=== PATIENT | female | born 1970 | race Caucasian/White ===

== ENCOUNTER 2016-06-14 17:18 | Emergency (ER) | payer OTHER ==
[~2016-06-14] VITALS: Ht 162.6 cm; Wt 84.0 kg
[2016-06-14 17:18] VITALS: TEMP 37; Ht 162.6 cm; Wt 84.0 kg
[~2016-06-14 17:18] MED LIST: ALBUAER2 INH; IBUP-103 PO; OMEP-105 PO; PRED10TA PO; RIZA1TAB11 PO
[2016-06-14] MEDS ORDERED: CLR10 PO (17:54)
--- NOTE | 2016-06-14 17:56 | DIAGNOSTIC IMAGING REPORT ---
RIGHT KNEE 3 VIEWS CLINICAL HISTORY: right knee injury, twisted Right pain COMPARISON: None. DISCUSSION: The bones and joint spaces appear intact. There is no evidence of fracture, dislocation or bony disease. There is no evidence for soft tissue swelling. IMPRESSION: Negative study. Electronically signed by: Augusto Gonzalez M.D. 06/14/2016 5:55 PM Dictated Date/Time: 06/14/2016 5:54 PM
[2016-06-14] MEDS ORDERED: IBUPROFEN 600 MG TAB ONE (18:02)
[2016-06-14] MEDS ORDERED: IBUPROFEN 200 MG TAB ONE (18:02)
[2016-06-14 18:09] VITALS: BP 153/99; PULSE 80; O2SAT 97
--- NOTE | 2016-06-14 18:16 | EMERGENCY ROOM VISIT NOTE ---
ED Visit Note First contact with patient: 17:24 CHIEF COMPLAINT: knee pain HISTORY OF PRESENT ILLNESS: This 45-year-old female patient presents to the emergency department ambulatory after sustaining an injury to the right knee while at work just prior to arrival. The patient states that she was walking into the restroom and slipped on the wet floor, twisting her right knee. She did not fall. The patient denies any other injuries besides their knee. The patient denies swelling or bruising. There is pain over the lateral aspect of the knee which radiates down the back of the leg. They rate the pain as sharp and 6/10. The patient states they are able to walk on it. No numbness or tingling. No previous injuries to this knee. No ankle, foot or hip pain. REVIEW OF SYSTEMS: A 6 system review of systems was completed with positives and pertinent negatives listed in the HPI. ALLERGIES: No known drug allergies MEDICATIONS: See med list PMH: Migraine headaches SOCIAL HISTORY: The patient lives locally with family. Nonsmoker. PHYSICAL EXAM: Vital Signs: Reviewed Nurse's notes, vital signs stable. GENERAL : This is a 45-year-old female, no acute distress, but appears in pain, well- developed, well-nourished. MENTAL STATUS: Alert, oriented to person place and time, and cooperative. MUSCULOSKELETAL: The right knee is not swollen. There is no ecchymosis. There is no joint effusion present. The patient is tender over the lateral aspect of the knee. The patella does not subluxate. Range of motion is full. Strength of the quads and hamstrings is in 5/5. Myrna's is negative. Boris's and Anterior Drawer tests are negative. There is no laxity with varus and valgus stressing. The foot and toes are warm and well-perfused. Dorsalis pedis pulse 2+. Sensation to pain and light touch is intact. Capillary refill less than 2 seconds. RADIOGRAPHIC FINDINGS: RIGHT KNEE 3 VIEWS CLINICAL HISTORY: right knee injury, twisted Right pain COMPARISON: None. DISCUSSION: The bones and joint spaces appear intact. There is no evidence of fracture, dislocation or bony disease. There is no evidence for soft tissue swelling. IMPRESSION: Negative study. EMERGENCY DEPARTMENT COURSE: I examined the patient. X-rays of the right knee were reviewed by myself and read by radiology and reveal no acute findings. The patient was placed in a knee immobilizer under my direction and the position was satisfactory. She declined crutches. She was given information for orthopedic follow-up. She verbalized understanding of my assessment and treatment plan. The patient was discharged home in good condition. DIAGNOSIS: Right knee injury Problem List Medical Problems: (1) Closed fracture of cervical spine Status: Resolved (2) scoliosis Status: Chronic (3) Whiplash injury to neck Status: Resolved Current/Historical Medications Scheduled Loratadine (Claritin), 10 MG PO DAILY Omeprazole-Sodium Bicarbonate (Zegerid Otc), 1 CAP PO DAILY Scheduled PRN Albuterol (Ventolin), 2 PUFFS INH QID PRN for SOB/Wheezing Ibuprofen Tab (Advil), 800 MG PO Q8 PRN for Pain Rizatriptan Benzoate (Rizatriptan Benzoate), 10 MG PO UD PRN for Migraine Allergies Coded Allergies: No Known Allergies (Verified , 06/14/16) Vital Signs Date Time Temp Pulse Resp B/P Pulse Ox O2 Delivery O2 Flow Rate FiO2 06/14/16 18:09 80 16 153/99 97 Room Air 06/14/16 17:18 37.0 84 20 146/76 96 Room Air Medications Administered Medications (Trade) Dose Ordered Sig/Kathy Route Start Time Stop Time Status Last Admin Dose Admin Ibuprofen (Motrin Tab) 600 mg STK-MED ONCE .ROUTE 06/14/16 18:02 06/14/16 18:04 DC 06/14/16 18:07 600 MG Ibuprofen (Advil Tab) 200 mg STK-MED ONCE .ROUTE 06/14/16 18:02 06/14/16 18:04 DC 06/14/16 18:07 200 MG Departure Information Impression Primary Impression: Sprain of knee Dispostion Home / Self-Care Condition GOOD Referrals Sue Ferguson (PCP) Charlie Jha MD Patient Instructions My [facility] Additional Instructions You have been treated in the Emergency Department for Knee Pain. For pain control, you can use the following [id number] medicines (if >12 yo): - Regular strength (325mg/tab) Tylenol (acetaminophen) 2 tabs every 4-6 hours as needed. Do not exceed 12 tablets in a 24 hour period. Avoid taking more than 4 grams (4000 mg) of Tylenol per day. This includes any other sources of acetaminophen you may take on a regular basis. - Regular strength (200 mg/tab) Advil (ibuprofen) 1-2 tabs every 4-6 hours as needed. Do not exceed a dose of 3200 mg per day. If this is a recent injury (<24 hrs), ice can be applied to the area of pain for the first 3 days to help decrease pain and inflammation. Ice massages can be performed by freezing water in a paper cup, peeling back the cup to expose the ice and then massaging over the affected area. Follow-up with orthopedics next week if persistent pain. Return to the Emergency Department if your current symptoms worsen despite treatment course outlined above. Problem Qualifiers Primary Impression: Sprain of knee Encounter type: initial encounter Involved ligament of knee: unspecified ligament Laterality: right Qualified Codes: S83.91XA - Sprain of unspecified site of right knee, initial encounter
[2017-01-17] MEDS ORDERED: CETI10TA84 PO (13:32)
[2017-01-17] MEDS ORDERED: ALBU18002 INH (13:32)
[2017-01-17] MEDS ORDERED: METH-307 PO (13:32)
[2017-01-17] MEDS ORDERED: ONDA8TAB6 PO (13:32)
== END 2016-06-14 18:25 | disposition home or self-care (01) ==
LOC: C.EDB 17:18 → C.EDD 18:25
DX: S83.91XA Sprain of unspecified site of right knee, initial encounter (principal); W18.40XA Slipping, tripping and stumbling without falling, unspecified, initial encounter; Y99.0 Civilian activity done for income or pay; Z79.899 Other long term (current) drug therapy

== ENCOUNTER → 2016-07-30 | Outpatient (CLI) | payer OTHER ==
[~2016-07-30] MED LIST changes: +ALBU18002 INH; +CETI10TA84 PO; +CLR10 PO; +IBUP1TAB55 PO; +METH-307 PO; +MTR600X PO; +ONDA8TAB6 PO; +OXYC-57 PO; -PRED10TA PO
[2016-07-30 17:33] LABS: BASO % 0.8 %; BASO ABS # 0.05 K/uL (0-0.2); COMPLETE YES; EOS % 4.4 %; HEMATOCRIT 39.4 % (37-47); IG% 0.3 %; LYMPH % 42.6 %; LYMPH ABS # 2.64 K/uL (1.2-3.4); MEAN CELL VOLUME 88.9 fL (80-100); MEAN CORPUSCULAR HEMOGLOBIN 30.2 pg (25-34); MEAN PLATELET VOLUME 8.5 fL (7.4-10.4); MONO % 7.9 %; PLATELET COUNT 392 K/uL (130-400); RED BLOOD COUNT 4.43 M/uL (4.2-5.4)
[2016-07-30 17:40] LABS: URINE APPEARANCE CLEAR (CLEAR); URINE BILIRUBIN NEG (NEG); URINE COLOR YELLOW; URINE EPITHELIAL CELL AUTO >30 /lpf (0-5); URINE NITRITE NEG (NEG); URINE SPECIFIC GRAVITY 1.021 (1.000-1.030); UROBILINOGEN NEG (NEG)
[2016-07-30 17:45] LABS: MANUAL MICROSCOPIC REQUIRED? NO; REVIEW REQ? NO
[2016-07-30 17:53] LABS: ALT/SGPT 30 U/L (12-78); AST/SGOT 13 U/L (15-37); BLOOD UREA NITROGEN 11 mg/dl (7-18); BUN/CREATININE RATIO 13.3 (10-20); CALCIUM 8.8 mg/dl (8.5-10.1); CARBON DIOXIDE 26 mmol/L (21-32); CHLORIDE 108 mmol/L (98-107); CREATININE 0.82 mg/dl (0.60-1.20); GLUCOSE 93 mg/dl (70-99); POTASSIUM 3.9 mmol/L (3.5-5.1); SODIUM 141 mmol/L (136-145)
[2016-07-30 18:04] LABS: ALB/GLOB RATIO 1.1 (0.9-2); ALKALINE PHOSPHATASE 65 U/L (45-117); CHOLESTEROL 163 mg/dl (0-200); CHOLESTEROL/HDL RATIO 3.3; HDL CHOLESTEROL 50 mg/dl; LDL CHOLESTEROL CALCULATED 91 mg/dl; TRIGLYCERIDES 111 mg/dl (0-150); VERY LOW DENSITY LIPOPROT CALC 22 mg/dl
== END | disposition home or self-care (01) ==
LOC: C.LAB 13:31
PROVIDERS: ATTEND Neuromusculoskeletal Medicine & OMM
DX: Z00.00 Encounter for general adult medical examination without abnormal findings (principal); Z87.448 Personal history of other diseases of urinary system

== ENCOUNTER → 2016-08-09 | Outpatient (CLI) | payer OTHER ==
--- NOTE | 2016-08-09 19:33 | DIAGNOSTIC IMAGING REPORT ---
RENAL ULTRASOUND CLINICAL HISTORY: Family history of polycystic kidney disease. COMPARISON STUDY: CT of the abdomen and pelvis July 10, 2015. TECHNIQUE: Sonography of the kidneys and the urinary bladder was performed. FINDINGS: The right kidney measures 11.7 cm in maximal dimension and the left measures 11 cm. There is no hydronephrosis. There are a few suspected right parapelvic cysts. Both ureteral jets were identified. No calculi were identified. IMPRESSION: No renal cortical cysts identified. Electronically signed by: Patrick Jiang M.D. 08/09/2016 7:31 PM Dictated Date/Time: 08/09/2016 7:29 PM
== END | disposition home or self-care (01) ==
LOC: C.ULTR 18:02
PROVIDERS: ATTEND Neuromusculoskeletal Medicine & OMM
DX: R31.29 Other microscopic hematuria (principal); Z82.71 Family history of polycystic kidney

== ENCOUNTER → 2016-12-17 | Outpatient (CLI) | payer OTHER | END | disposition home or self-care (01) | LOC: C.PAPS 10:56 | PROVIDERS: ATTEND Obstetrics & Gynecology | DX: Z12.4 Encounter for screening for malignant neoplasm of cervix (principal); R87.610 Atypical squamous cells of undetermined significance on cytologic smear of cervix (ASC-US); N93.9 Abnormal uterine and vaginal bleeding, unspecified ==

== ENCOUNTER → 2016-12-17 | Outpatient (CLI) | payer OTHER | END | disposition home or self-care (01) | LOC: C.PATHSPEC 10:49 | PROVIDERS: ATTEND Obstetrics & Gynecology | DX: N93.9 Abnormal uterine and vaginal bleeding, unspecified (principal) ==

== ENCOUNTER → 2017-01-02 | Outpatient (CLI) | payer OTHER ==
[2017-01-02 14:38] LABS: HEMATOCRIT 37.7 % (37-47); MEAN CELL VOLUME 89.8 fL (80-100); MEAN CORPUSCULAR HEMOGLOBIN 29.5 pg (25-34); MEAN CORPUSCULAR HGB CONC 32.9 g/dl (32-36); MEAN PLATELET VOLUME 8.1 fL (7.4-10.4); PLATELET COUNT 436 K/uL (130-400); WHITE BLOOD COUNT 7.54 K/uL (4.8-10.8)
== END | disposition home or self-care (01) ==
LOC: C.LAB1850 12:51
PROVIDERS: ATTEND Obstetrics & Gynecology
DX: N93.9 Abnormal uterine and vaginal bleeding, unspecified (principal); N83.202 Unspecified ovarian cyst, left side

== ENCOUNTER → 2017-01-02 | Outpatient (CLI) | payer OTHER | END | disposition home or self-care (01) | LOC: C.PATHSPEC 17:16 | PROVIDERS: ATTEND Obstetrics & Gynecology | DX: N87.1 Moderate cervical dysplasia (principal); R87.810 Cervical high risk human papillomavirus (HPV) DNA test positive ==

== ENCOUNTER 2017-02-04 05:46 | Observation (INO) | payer OTHER ==
--- NOTE | 2017-01-17 13:57 | PAT Medication Instructions ---
Service Date Jan 17, 2017. Current Home Medication List Albuterol Sulfate (Proair Respiclick), 1 PUFF INH Q4 PRN for Shortness of Breath Cetirizine (Zyrtec), 10 MG PO DAILY PRN for ALLERGIC REACTION Ibuprofen Tab (Advil), 800 MG PO Q8 PRN for Pain Loratadine (Claritin), 10 MG PO DAILY PRN for ALLERGIC REACTION Methocarbamol (Robaxin), 750 MG PO Q6 PRN for Muscle Spasms Omeprazole-Sodium Bicarbonate (Zegerid Otc), 1 CAP PO QAM Ondansetron Hcl (Zofran), 8 MG PO Q6 PRN for Nausea Rizatriptan Benzoate (Rizatriptan Benzoate), 10 MG PO UD PRN for Migraine Medication Instructions For Your Scheduled Surgery - Hold the following medications per surgeon's instructions: Ibuprofen Tab (Advil), 800 MG PO Q8 PRN for Pain - Hold the following medications the morning of surgery: Loratadine (Claritin), 10 MG PO DAILY PRN for ALLERGIC REACTION Cetirizine (Zyrtec), 10 MG PO DAILY PRN for ALLERGIC REACTION Methocarbamol (Robaxin), 750 MG PO Q6 PRN for Muscle Spasms - Take the following medications the morning of surgery with a sip of water: Albuterol Sulfate (Proair Respiclick), 1 PUFF INH Q4 PRN for Shortness of Breath (if needed, AND BRING WITH YOU THE MORNING OF THE SURGERY) Omeprazole-Sodium Bicarbonate (Zegerid Otc), 1 CAP PO QAM Ondansetron Hcl (Zofran), 8 MG PO Q6 PRN for Nausea (if needed) Rizatriptan Benzoate (Rizatriptan Benzoate), 10 MG PO UD PRN for Migraine (if needed) - Take the following medications as scheduled the night before surgery: Loratadine (Claritin), 10 MG PO DAILY PRN for ALLERGIC REACTION (if needed) Cetirizine (Zyrtec), 10 MG PO DAILY PRN for ALLERGIC REACTION (if needed) Methocarbamol (Robaxin), 750 MG PO Q6 PRN for Muscle Spasms (if needed) *OTHERWISE NOTHING TO EAT OR DRINK AFTER MIDNIGHT THE NIGHT BEFORE SURGERY* If you have any questions please call us at [phone] or [phone] or [phone]
[2017-01-17 15:08] LABS: BASO % 0.2 %; BASO ABS # 0.02 K/uL (0-0.2); COMPLETE YES; EOS % 3.6 %; HEMATOCRIT 40.5 % (37-47); IG% 0.2 %; LYMPH % 34.5 %; MEAN CELL VOLUME 91.2 fL (80-100); MEAN CORPUSCULAR HEMOGLOBIN 29.3 pg (25-34); MEAN CORPUSCULAR HGB CONC 32.1 g/dl (32-36); MEAN PLATELET VOLUME 8.4 fL (7.4-10.4); MONO % 6.9 %; NEUT % 54.6 %; PLATELET COUNT 360 K/uL (130-400); RED BLOOD COUNT 4.44 M/uL (4.2-5.4); WHITE BLOOD COUNT 8.12 K/uL (4.8-10.8)
[2017-01-17 15:20] LABS: BUN/CREATININE RATIO 15.7 (10-20); CALCIUM 9.3 mg/dl (8.5-10.1); CREATININE 0.8 mg/dl (0.60-1.20)
[~2017-02-04] VITALS: Ht 165.1 cm; Wt 83.2 kg
[2017-02-04] VITALS (8 sets, daily range): BP systolic 115–144; BP diastolic 67–86; PULSE 77–98; TEMP 36.7–37.1; O2SAT 95–98; Ht 165.1 cm; Wt 83.2 kg
[~2017-02-04 05:46] MED LIST changes: -ALBUAER2 INH; -IBUP1TAB55 PO; -MTR600X PO; -OXYC-57 PO
[2017-02-04] MEDS ORDERED: CEFAZOLIN 2000 MG/60 ML D5W IV SCH (06:00)
[2017-02-04] MEDS ORDERED: LACTATED RINGER'S 1000ML 1,000 ML IV SCH ×3 (06:00→10:01)
[2017-02-04] MEDS ORDERED: IBUP1TAB55 PO (06:07)
[2017-02-04] MEDS ORDERED: BUPIVACAINE 0.5 % 5 MG/1 ML MPF 30ML VIAL ONE (06:55)
[2017-02-04] MEDS ORDERED: METHYLENE BLUE 0.5% 10 ML VIAL ONE (06:55)
[2017-02-04] MEDS ORDERED: FENTANYL CITRATE INJ 50 MCG/1 ML 2 ML VIAL ONE (06:57)
[2017-02-04] MEDS ORDERED: MIDAZOLAM HCL 1 MG/ML 2ML VIAL ONE (06:57)
[2017-02-04] MEDS ORDERED: ONDANSETRON INJ 2 MG/ML 2 ML VIAL IV PRN ×2 (07:15→10:15)
[2017-02-04] MEDS ORDERED: EpHEDrine SULFATE INJ 50 MG/ML AMP IV PRN (07:15)
[2017-02-04] MEDS ORDERED: ATROPINE SULFATE 0.1 MG/ML 5ML SYR IV PRN (07:15)
--- NOTE | 2017-02-04 07:16 | History & Physical Bridge Note ---
H&P Re-Evaluation Bridge Note: I have examined the patient, reviewed the History & Physical and in the interval since the performance of the History & Physical I have noted the following changes of clinical significance: No changes noted
[2017-02-04] MEDS ORDERED: ACETAMINOPHEN 1000 MG/100 ML IV IV ONE (07:43)
[2017-02-04] MEDS ORDERED: HYDROmorphone INJ 2 MG/ML SYR/VIAL ONE (07:54)
[2017-02-04] MEDS ORDERED: PROPOFOL IV EMULSION 10 MG/ML 20 ML VIAL IV ONE (08:51)
[2017-02-04] MEDS ORDERED: ROCURONIUM BROMIDE 10 MG/ML 5 ML VIAL IV ONE (08:51)
[2017-02-04] MEDS ORDERED: LIDOCAINE HCL 2% 2 ML VIAL (20MG/ML) ONE (08:51)
[2017-02-04] MEDS ORDERED: ONDANSETRON INJ 2 MG/ML 2 ML VIAL ONE (08:51)
[2017-02-04] MEDS ORDERED: DEXAMETHASONE SOD INJ 4 MG/ML VIAL ONE (08:51)
[2017-02-04] MEDS ORDERED: NEOSTIGMINE METHYLSULFATE 5 MG/5 ML SYR ONE (08:52)
[2017-02-04] MEDS ORDERED: GLYCOPYRROLATE INJ 0.2 MG/ML VIAL ONE (08:52)
--- NOTE | 2017-02-04 10:06 | Medical Student: [facility] ---
Operative Report Operative Date Feb 04, 2017. Pre-Operative Diagnosis Left cyst of the Ovary, Abnormal Uterine Bleeding, Dysmenorrhea Post-Operative Diagnosis Endometriosis, Left cyst of the Ovary, AUB, Dysmenorrhea Procedure(s) Performed Total Laproscopic Hysterectomy and Bilateral Salpingoopherectomy Surgeon Dr. Hull Sharebroker Surgeon(s) Dr. Burton Estimated Blood Loss 50 ml Findings Endometrioma of the right ovary Cyst of the left ovary Endometriosis Fluids (cc crystalloids) 1300 Lactated Ringer's Specimens Normal appearing reproductive age uterus with cervix Right ovary with endometrioma Left ovary with cyst Normal appearing Fallopian Tubes Drains Coffey Catheter Anesthesia General Complication(s) None Disposition Recovery Room / PACU (Discharge today) Description of Procedure Total Laparoscopic Hysterectomy and bilateral salpingo-oophorectomy using DaVinci Robot.
--- NOTE | 2017-02-04 10:07 | Discharge Instructions ---
Discharge Instructions Date of Service Feb 04, 2017. Admission Reason for Admission: Left Ovarian Cyst, Abnormal Uterine Bleeding, Dysp Discharge Discharge Diagnosis / Problem: after surgery Discharge Goals Goal(s): Routine recovery after surgery Activity Recommendations Activity Limitations: as noted below . Instructions / Follow-Up Instructions / Follow-Up POST OPERATIVE: BOWEL FUNCTION/MEDICATIONS: 1. Constipation pain and discomfort are the most common complaints 5-7 days after surgery. Points 2-6 address the things that can help. 2. Chewing gum can help stimulate the gut and help improve digestion and motility. 3. Milk of Magnesia 1-2 times per day until return of bowel function. 4. Colace is a stool softener that helps. Taking this 2-3 times per day until bowel function returns to normal is highly recommended. 5. Dulcolax is a laxative that may be used if several days have passed without a bowel movement. Alternatively Miralax may be used daily instead. 6. Drink plenty of fluids as this will also reduce constipation. 7. Narcotic pain medications will be prescribed by your physician. They are safe to use and we encourage you to use them. If you are not allergic, ibuprofen will also be prescribed. Many patients will be able to transition off of the narcotic medications to ibuprofen by postoperative day 3. ACTIVITY RECOMMENDATIONS: 1. Get plenty of rest and listen to your body. If you are tired, take a nap. 2. You may shower, but do not take a tub bath until you see your doctor at the 2 week post operative visit. 3. Absolutely NO intercourse and nothing in the vagina until you are examined by your doctor at the 8 week visit. At that visit it will be determined when such activities can be resumed. This can range from 6-12 weeks after your surgery depending on healing time. 4. The main physical activity in the first week should be walking. By the second week you can slowly increase activity. There are no limits on walking up and down stairs. 5. Do not lift more than 5-10 lbs for 4 weeks. Remember the "one-handed rule", i.e. if you can lift something with only one hand it's likely okay. 6. Minimize bond runner like vacuuming and exercising for 4 weeks. "Overdoing it" can lead to incisions not healing, pain and vaginal bleeding , so again, listen to your body. 7. Driving can be resumed when you feel able. Do not drive within 24 hours of taking a narcotic medication. EXPECTATIONS: 1. Vaginal spotting, bleeding and discharge are common after surgery. There may even be an odor to the discharge which is often related to sutures used in the vagina. If you experience heavy vaginal bleeding, call the office number day or night [phone]. 2. Bladder discomfort is common after surgery from the catheter. This usually resolves in 1-2 weeks. 3. By the end of the 3rd or 4th week you should be feeling much better. It may take up to 6 weeks for your energy levels to return to normal. 4. Narcotic medications have side effects such as: dizziness, headache, nausea and/or vomiting. If you suspect your pain medication is causing problems, call our office and we may be able to prescribe an alternate medication. 5. The skin incisions are often covered with a liquid bandage. This will gradually peel off over time. CALL THE OFFICE IF YOU HAVE ANY OF THE FOLLOWIN. Temperature of 101 degrees or higher. 2. Severe abdominal or pelvic pain not relieved by pain medication. 3. Persistent nausea or vomiting. 4. Increased pain with urination or difficulty urinating. 5. Bright red bleeding that soaks more than 1 pad per hour. CONTACT PHONE NUMBERS: Main Office: [phone] Surgical Nurse: [phone] extension [phone] FOLLOW-UP: Post-Operative Appointments: * Individual instructions will have been given about the timing of your first examination, but this is usually at the end of the second week home. * You will need to call the office at soon after discharge to make the appointment for your post-op check-up if it has not already been scheduled. * Additional information regarding activity, sexual intercourse and when to return to work will be given at this appointment. WE WISH YOU A SPEEDY RECOVERY! Current Hospital Diet Patient's current hospital diet: Discharge Diet Recommended Diet: Regular Diet Procedures Procedures Performed: Total Laparoscopic Hysterectomy Bilateral Salping-oopherectomy Robot Asisst; Lysis of Adhesions; Cystoscopy Pending Studies Studies pending at discharge: yes List of pending studies: pathology Medical Emergencies . Who to Call and When: Medical Emergencies: If at any time you feel your situation is an emergency, please call 911 immediately. . Non-Emergent Contact Non-Emergency issues call your: Oil Well Logger . . "Provider Documentation" section prepared by Ashley Hull. . VTE Core Measure Inpt VTE Proph given/why not?: SCD's [place] Drug Monitoring Program Search Results: patient reviewed within database, no issues identified
[2017-02-04] MEDS ORDERED: MTR600X PO (10:09)
[2017-02-04] MEDS ORDERED: OXYC-57 PO (10:09)
--- NOTE | 2017-02-04 10:13 | [facility] Post Operative Brief Note ---
Immediate Operative Summary Operative Date Feb 04, 2017. Pre-Operative Diagnosis Dysmenorrhea, Abnormal Bleeding; Cyst of Left Ovary, severe dysplasia Post-Operative Diagnosis Same as preop, endometriosis Procedure(s) Performed Total Laparoscopic Hysterectomy Bilateral Salping-oopherectomy Robot Asisst; Lysis of Adhesions; Cystoscopy Surgeon Dr. Hull Game Designer/Creative Director Surgeon(s) RN Estimated Blood Loss 50 ml Findings uterus mobile but left and right ovary with cystic masses, stuck in cul de sac, evidence of endometrioma on right. debris in cul de sac, liver edge not seen, obscured by fat. cystoscopy findings with normal bladder filling, no sutures seen, nl ureteral jets. Fluids (cc crystalloids) 1300 Specimens A. Cervix, Uterus, Bilateral Fallopian Tubes, Left Ovary. Right ovary Drains nolasco Anesthesia general Complication(s) None Disposition Recovery Room / PACU
[2017-02-04] MEDS ORDERED: ACETAMINOPHEN 325 MG TAB PO PRN (10:15)
[2017-02-04] MEDS ORDERED: SIMETHICONE 80 MG CHEW PO PRN (10:15)
[2017-02-04] MEDS ORDERED: KETOROLAC TROMETHAMINE 30 MG/ML VIAL IV. PRN (10:15)
[2017-02-04] MEDS ORDERED: IBUPROFEN 600 MG TAB PO PRN (10:15)
[2017-02-04] MEDS ORDERED: OXYCODONE/ACETAMINOPHEN 5-325 TAB PO PRN (10:15)
[2017-02-04] MEDS: FENTANYL CITRATE INJ 50 MCG/1 ML 2 ML VIAL IV PRN ×2 (10:22→10:28)
--- NOTE | 2017-02-04 10:35 | Anesthesiology Progress Note ---
Anesthesia Post Op Note Date & Time Feb 04, 2017 at 10:35 Vital Signs Pain Intensity: 2 Vital Signs Past 12 Hours Date Time Temp Pulse Resp B/P (MAP) Pulse Ox O2 Delivery O2 Flow Rate FiO2 02/04/17 10:25 70 16 132/67 98 Nasal Cannula 2 02/04/17 10:15 79 16 145/65 100 Oxymask 10 02/04/17 10:05 79 16 147/71 100 Oxymask 10 02/04/17 09:56 37.4 101 16 154/83 98 Oxymask 10 02/04/17 06:00 36.8 83 18 141/86 (104) 98 Room Air Notes Mental Status: alert / awake / arousable, participated in evaluation Pt Amnestic to Procedure: Yes Nausea / Vomiting: adequately controlled Pain: adequately controlled Airway Patency, RR, SpO2: stable & adequate BP & HR: stable & adequate Hydration State: stable & adequate Anesthetic Complications: no major complications apparent
--- NOTE | 2017-02-04 11:12 | [facility] Operative Report ---
Operative Report Operative Date Feb 04, 2017. Pre-Operative Diagnosis Dysmenorrhea, Abnormal Uterine Bleeding; dyspareunia, pelvic pain, Cyst of Left Ovary, severe dysplasia Post-Operative Diagnosis Same as preop, endometriosis Procedure(s) Performed Total Laparoscopic Hysterectomy Bilateral Salping-oopherectomy Robot Asisst; Lysis of Adhesions; Cystoscopy Surgeon Dr. Hull Hydraulic Engineer Surgeon(s) RN Estimated Blood Loss 50 ml Findings Uterus normal in size and mobile in the pelvis. Liver edge and secured by fatty bowel. Bilateral ovaries stuck within the cul-de-sac. Left ovary with mass approximately 2-3 cm protruding from its posterior pole. Right ovary with evidence of endometrioma with spill of chocolate cyst fluid. Filmy adhesions of bilateral ovaries to the cul-de-sac and to each other. Significant debris and remnants of adhesed endometrioma in the cul-de-sac. Cystoscopy findings with normal bladder filling and normal ureteral jets. Fluids 1300 Specimens A. Cervix, Uterus, Bilateral Fallopian Tubes, Left Ovary. Right ovary Drains nolasco Anesthesia general Complication(s) None Disposition Recovery Room / PACU Description of Procedure Patient taken to the operating room and identified. After adequate general anesthesia was obtained as well as the dorso lithotomy position and prepped and draped in the usual sterile fashion. Attention was turned to the patient's vagina where a Nolasco catheter was placed under sterile conditions. A weighted speculum and anterior retractor used to visualize the cervix which was grasped on its anterior lip with an Allis clamp. A single interrupted suture of 0 Vicryl space at the 3 o'clock position. The cervix is sequentially dilated using Hegar dilators to 23. The uterus sounded to 9 cm. The PartyLine care uterine manipulator was gently placed in the cervical os into the uterine cavity and the balloon was inflated. Suture material was tied down to the cup. The stabilizing cup was placed and the vaginal instruments were all removed. Attention was then turned to the patient's abdomen where a supraumbilical skin incision was made with the scalpel. The Veress needle was placed intraperitoneally with an opening pressure of 4-6 mmHg. A CO2 pneumoperitoneum was created. The 12 mm trocar was placed under direct visualization using the optical trocar. The patient was placed in steep Trendelenburg. Two da Wilson trocar sites were created left and right of the midline by first making skin incisions and then placing under direct visualization da Wilson trocars. Using a blunt probe the pelvis was inspected with the findings as noted above. In anticipation of needing to take Further Adhesions, a Third Instrument Trocar Was Then Placed under Direct Visualization. In Addition, a Patient Assist Port Was Placed in the Left Upper Quadrant. The camera was then removed and the da Wilson robot was brought to the patient's bedside. The appropriate instrument arms were connected to the appropriate trocars. The camera was brought into the field. Through instrument instrument arm #3 a prograsp was placed. Through Instrument arm #2 the fenestrated bipolar was placed. Through instrument arm #1 monopolar joel was placed. These were all placed under direct visualization. The surgeon then went to the console. The uterus was manipulated to elevate it anteriorly. Adhesions were taken down both bluntly and sharply using the monopolar joel. Given the patient's complaints the decision was made to proceed with bilateral salpingo-oophorectomy. The left infundibulopelvic ligament was identified. Ureter was suspected to be coursing well below the planned operative site. The infundibulopelvic ligament was cauterized and then transected. The round ligament and broad ligament attachments were further cauterized and transected. The anterior posterior leaves of the broad ligament on the left side were opened up into. The bladder flap was begun from the left to meet across the midline towards the right. The bladder was pushed well away from the planned operative sites. The uterine artery pedicle was coagulated on this side. Attention was then turned to the right infundibulopelvic ligament which was identified. The ureter was suspected to be coursing well below the planned operative site. The ligament was then coagulated and transected in similar fashion as were the broad ligament and round ligament attachments. The anterior and posterior leaves of the broad ligament were opened up into on the right side. The bladder flap was begun from the right and then across the midline towards the left. The bladder was pushed well away from the planned operative site. The uterine artery pedicle was skeletonized. It was coagulated and then transected. The cardinal ligament attachments were further coagulated and transected. Attention was then returned to the left uterine artery pedicle which was further skeletonized coagulated and transected. The cardinal ligament attachments were also coagulated and transected. This completely mobilized the planned colpotomy site. The colpotomy was begun and with the cervix was carved away from the upper vagina circumferentially. The specimen was brought out vaginally. IV methylene blue was administered. Using 2-0 V LOC 90 suture, the vaginal cuff was closed in the usual fashion after #1 instrument arm was replaced with a large needle transportation driver. The suture was then cut and the needle was removed from the abdomen. The pelvis was irrigated and the suture line was hemostatic. The CO2 pneumoperitoneum was let down and the suture line remained hemostatic. At this point the camera was removed. CO2 pneumoperitoneum was let down. The speeder machine operator then went to perform the cystoscopy. The findings were as noted as above. A new Nolasco catheter was placed. Attention was then turned to the patient's abdomen where the instrument arms removed from the appropriate trocars and the robot was undocked and moved away from the patient's bedside. The CO2 gas had been let out of the patient's abdomen and the trocars removed. The larger trocar site had the fascia reapproximated with a single stitch of 0 Vicryl. All trocar sites were then closed in a particular fashion using 4-0 Vicryl. The incisions were injected with Marcaine. They were then dressed with Dermabond. The patient was returned to the supine position, awoken from anesthesia and transferred recovery room in stable condition. All sponge lap and needle counts were correct 2 I attest to the content of the Intraoperative Record and any orders documented therein. Any exceptions are noted below.
[2017-02-04] MEDS ORDERED: IV FLUIDS COMPLETED PRN (12:15)
[2017-02-04] MEDS: OXYCODONE/ACETAMINOPHEN 5-325 TAB PO PRN ×2 (14:37→18:13)
== END 2017-02-04 18:25 | disposition home or self-care (01) ==
LOC: C.ACU 05:46 → C.MS4N 10:04 → ENRESERV 10:52
PROVIDERS: ADMIT Obstetrics & Gynecology; ATTEND Obstetrics & Gynecology
DX: D06.9 Carcinoma in situ of cervix, unspecified (principal); D25.9 Leiomyoma of uterus, unspecified; N94.6 Dysmenorrhea, unspecified; N83.202 Unspecified ovarian cyst, left side; E66.9 Obesity, unspecified; J45.909 Unspecified asthma, uncomplicated; N94.10 Unspecified dyspareunia; Z90.49 Acquired absence of other specified parts of digestive tract; Z82.49 Family history of ischemic heart disease and other diseases of the circulatory system; Z83.3 Family history of diabetes mellitus
CPT/HCPCS: 58571; S2900

== ENCOUNTER 2017-05-25 16:54 | Emergency (ER) | payer OTHER ==
[~2017-05-25] VITALS: Ht 162.6 cm; Wt 85.8 kg
[~2017-05-25 16:54] MED LIST changes: +IBUP1TAB55 PO; +MTR600X PO; +OXYC-57 PO
[2017-05-25 16:57] VITALS: TEMP 36.7; Ht 162.6 cm; Wt 85.8 kg
[2017-05-25] MEDS ORDERED: CYCLOBENZAPRINE HCL 10 MG TAB PO STA (17:13)
[2017-05-25] MEDS ORDERED: OXYCODONE/ACETAMINOPHEN 5-325 TAB PO STA (17:13)
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
--- NOTE | 2017-05-25 18:29 | EMERGENCY ROOM VISIT NOTE ---
ED Visit Note First contact with patient: 17:02 The patient was seen and examined with Lucina Aquino PA-C. I agree with the history, physical and findings. Please see the note for disposition and details. Patient has tenderness in the left trapezius area. She is neurovascularly intact in the left upper extremity. CT imaging ordered. Cardiopulmonary examination unremarkable.
--- NOTE | 2017-05-25 18:42 | DIAGNOSTIC IMAGING REPORT ---
CERVICAL SPINE CT CT DOSE: 240.48 mGy.cm HISTORY: L sided neck pain down arm work related injury TECHNIQUE: Multiaxial CT images of the cervical spine were performed and reformatted in the sagittal and coronal plane without the use of contrast. A dose lowering technique was utilized adhering to the principles of ALARA. COMPARISON: Cervical spine CT 01/21/2013. FINDINGS: No fractures. No subluxation. Prevertebral soft tissues and the C1-C2 interval are intact. No pneumothorax. Small broad-based posterior disc osteophyte complex at C4-C5. No significant central canal narrowing by CT technique. There straining of the cervical spine, unchanged. The visualized brain parenchyma is unremarkable. Mild dextroscoliosis which may be positional. Moderate osteoarthritis within the left C2-C3 facet. IMPRESSION: No fractures within the cervical spine. Electronically signed by: Javad Addison M.D. 05/25/2017 6:41 PM Dictated Date/Time: 05/25/2017 6:37 PM
[2017-05-25] MEDS ORDERED: B-COTAB18 PO (18:44)
[2017-05-25] MEDS ORDERED: BLAC1TAB PO (18:44)
[2017-05-25] MEDS ORDERED: DEXAMETHASONE SOD INJ 4 MG/ML VIAL PO STA (18:47)
--- NOTE | 2017-05-25 19:11 | DIAGNOSTIC IMAGING REPORT ---
L RIBS UNILATERAL WITH PA CHEST CLINICAL HISTORY: L lateral mid rib pain COMPARISON STUDY: Chest CT 01/21/2013. FINDINGS: The heart is mildly enlarged. The lungs are clear. No pleural effusions. No pneumothorax. No rib fractures. IMPRESSION: No rib fractures. No pneumothorax. Electronically signed by: Javad Addison M.D. 05/25/2017 7:10 PM Dictated Date/Time: 05/25/2017 7:07 PM
[2017-05-25] MEDS ORDERED: PRED50TA PO (19:44)
[2017-05-25] MEDS ORDERED: CYCL10TA6 PO (19:44)
[2017-05-25 20:38] VITALS: BP 147/85; PULSE 70; O2SAT 96
== END 2017-05-25 20:41 | disposition home or self-care (01) ==
LOC: C.EDB 16:56
DX: M54.2 Cervicalgia (principal); R07.81 Pleurodynia; Y99.0 Civilian activity done for income or pay; W50.1XXA Accidental kick by another person, initial encounter; Y93.89 Activity, other specified; Y92.89 Other specified places as the place of occurrence of the external cause; M41.9 Scoliosis, unspecified; Z87.81 Personal history of (healed) traumatic fracture; Z80.9 Family history of malignant neoplasm, unspecified; Z83.3 Family history of diabetes mellitus; Z83.79 Family history of other diseases of the digestive system; Z82.49 Family history of ischemic heart disease and other diseases of the circulatory system; Z84.1 Family history of disorders of kidney and ureter; Z82.0 Family history of epilepsy and other diseases of the nervous system

== ENCOUNTER 2017-09-17 22:17 | Emergency (ER) | payer OTHER ==
[~2017-09-17] VITALS: Ht 165.1 cm; Wt 89.0 kg
[~2017-09-17 22:17] MED LIST changes: +B-COTAB18 PO; +BLAC1TAB PO; -MTR600X PO; -OMEP-105 PO; +OMEP-107 PO; +ONDA-170 PO; -ONDA8TAB6 PO
[2017-09-17 22:18] VITALS: Ht 165.1 cm; Wt 89.0 kg
[2017-09-17] MEDS ORDERED: ERYTHROMYCIN OP OINT 5 MG/GM 3.5 GM TUBE OP ONE (22:30)
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
[2017-09-17 22:45] VITALS: BP 136/76; PULSE 89; TEMP 36.8; O2SAT 98
== END 2017-09-17 22:47 | disposition home or self-care (01) ==
LOC: C.EDB 22:18
DX: H00.011 Hordeolum externum right upper eyelid (principal); Z79.899 Other long term (current) drug therapy; Z80.9 Family history of malignant neoplasm, unspecified; Z83.3 Family history of diabetes mellitus; Z83.79 Family history of other diseases of the digestive system; Z84.1 Family history of disorders of kidney and ureter; Z82.49 Family history of ischemic heart disease and other diseases of the circulatory system; Z82.0 Family history of epilepsy and other diseases of the nervous system

== ENCOUNTER 2018-10-02 15:29 | Inpatient (IN) ==
[2018-10-02] MEDS ORDERED: ONDANSETRON HCL 8 MG/54 ML BAG IV STA (15:44)
[2018-10-02] MEDS ORDERED: SODIUM CHLORIDE 0.9% 1000ML 1,000 ML IV SCH ×2 (15:45)
--- NOTE | 2018-10-02 16:35 | XRay Report ---
XR chest 1V portable CLINICAL HISTORY: 47 years-old Female presenting with weakness. TECHNIQUE: Portable upright AP view of the chest was obtained. COMPARISON: 09/28/2018. FINDINGS: Tunneled right subclavian or internal jugular catheter terminates in the mid SVC. Cardiac silhouette top normal in size. No focal opacity. No large effusion or pneumothorax. Osseous structures normal. C holecystectomy clips noted. IMPRESSION: 1. Borderline cardiomegaly. Otherwise no acute cardiopulmonary disease. Electronically signed by: Kevin Pope M.D. 10/02/2018 4:33 PM
[2018-10-02 16:41] LABS: Alanine Aminotransferase 129 U/L (12-78); Aspartate Aminotransferase 72 U/L (15-37); BUN Creatinine Ratio 13.3 (10-20); Blood Urea Nitrogen 18 mg/dl (7-18); Calcium 9.4 mg/dl (8.5-10.1); Carbon Dioxide 24 mmol/L (21-32); Chloride 103 mmol/L (98-107); Creatinine Clr Calc Pharmacy 50.8 ml/min; Est GFR (Non-African American) 47.5; Glucose 108 mg/dl (70-99); Magnesium 1.5 mg/dl (1.8-2.4); Potassium 3.1 mmol/L (3.5-5.1); Sodium 137 mmol/L (136-145)
[2018-10-02 16:52] LABS: Albumin Globulin Ratio 1.4 (0.9-2); Alkaline Phosphatase 106 U/L (45-117); Bilirubin,Total 1.2 mg/dl (0.2-1); Globulin 2.9 gm/dl (2.5-4.0); Total Protein 6.9 gm/dl (6.4-8.2); Troponin I < 0.015 ng/ml (0-0.045)
[2018-10-02] MEDS ORDERED: OPTIRAY 320 125ml IV PRN (16:59)
[2018-10-02] MEDS ORDERED: POTASSIUM CHLORIDE / WTR 10 MEQ/100 ML PLCT IV ONE (17:00)
[2018-10-02] MEDS ORDERED: MAGNESIUM SULFATE / D5W 1 GM/100 ML BAG IV ONE (17:00)
--- NOTE | 2018-10-02 17:13 | CT Scan Report ---
CT ANGIOGRAM OF THE CHEST CLINICAL HISTORY: Dyspnea. COMPARISON STUDY: Chest x-ray dated 10/02/2018. Chest CT dated 01/21/2013. TECHNIQUE: Following the IV administration of 114 cc of Optiray 320, CT angiogram of the chest was pe rformed from the upper abdomen to the thoracic inlet utilizing the pulmonary embolus protocol. Images are reviewed in the axial, sagittal, and coronal planes. 3-D MIPS images are created and assessed. I V contrast was administered without complication. A dose lowering technique was utilized adhering to the principles of ALARA. CT DOSE: 230.61 mGy.cm FINDINGS: Thyroid: Imaged portions of the thyroid gland are normal in size and attenuation. Thoracic aorta: The thoracic aorta is normal in caliber and demonstrates standard 3-vessel arch anato my. No dissection is seen. Pulmonary vasculature: The pulmonary trunk is normal in caliber. There are no filling defects identif ied in main, lobar, or segmental pulmonary branches to suggest pulmonary embolus. Heart: A right subclavian central venous infusion port is in place. The heart is top normal in size a nd without pericardial effusion. Lungs and pleural spaces: Evaluation of the lung parenchyma is modestly degraded by motion artifact. No airspace consolidation or pleural effusion is identified. The trachea and central airways are hannah r. Mild diffuse peribronchial thickening is noted. Mediastinum: There is no mediastinal lymphadenopathy. Anali: Clear. Axillae: There is no axillary lymphadenopathy. Upper abdomen: Small hepatic cyst 7 present dating back to 2012 and measure up to 12 mm. Partially vi sualized upper abdominal viscera is otherwise within normal limits. Skeletal structures: No lytic or blastic bony lesions are seen. IMPRESSION: 1. There is no evidence of pulmonary embolus in the main, lobar, or segmental pulmonary arteries. 2. There is no airspace consolidation or pleural effusion. 3. Mild diffuse peribronchial thickening is noted. Correlate clinically for evidence of reactive airw ay disease. Electronically signed by: Kj Gaming M.D. 10/02/2018 5:12 PM
[2018-10-02 17:17] LABS: Basophils # (auto) 0.01 K/uL (0-0.2); Basophils % (auto) 0.3 %; Eosinophils # (auto) 0.01 K/uL (0-0.5); Eosinophils % (auto) 0.3 %; Lymphocytes # (auto) 1.95 K/uL (1.2-3.4); Lymphocytes % (auto) 54.2 %; Monocytes # (auto) 0.96 K/uL (0.11-0.59); Monocytes % (auto) 26.7 %; Neutrophils % (auto) 18.5 %; Toxic Granulation 1+
[2018-10-02 17:20] LABS: Neutrophils # (auto) 0.67 K/uL (1.4-6.5)
[2018-10-02 17:21] LABS: Hematocrit (blood only) 26.9 % (37-47); Hemoglobin 9.5 g/dL (12.0-16.0); Mean Corpuscular Volume 87.6 fL (80-100); Red Blood Count 3.07 M/uL (4.2-5.4)
[2018-10-02 17:22] LABS: Mean Corpuscular Hgb Conc 35.3 g/dL (32-36); Mean Platelet Volume 9.2 fL (7.4-10.4); Platelet Count 122 K/uL (130-400); RDW Coefficient of Variation 17.9 % (11.5-14.5); RDW Standard Deviation 56.8 fL (36.4-46.3)
[2018-10-02 17:39] LABS: Lyme Ab IgG w/WB Rflx Negative (Negative); Lyme Ab IgM w/WB Rflx Negative (Negative)
[2018-10-02 18:25] LABS: Appearance Urine Clear (Clear); Bacteria Urine Automated Negative (Negative); Bilirubin Urine Negative (Negative); Blood Urine 1+ (Negative); Color Urine Yellow; Epithelial Cell Urine Auto >30 /lpf (0-5); Glucose Urine UA Negative (Negative); Ketones Urine Trace (Negative); Leukocyte Esterase Urine Negative (Negative); Nitrite Urine Negative (Negative); RBC Urine Automated 0-4 /hpf (0-4); Specific Gravity Urine 1.044 (1.000-1.030); Urobilinogen Urine Negative (Negative)
[2018-10-02 18:34] LABS: Protein Urine Trace (Negative)
[2018-10-02] MEDS ORDERED: DOXYCYCLINE HYCLATE 100 MG in DEXTROSE 5% 100 ML IV STA (18:40)
[2018-10-02 18:52] LABS: Renal Epithelial Cells Urine 0-5 /lpf (0-5)
--- NOTE | 2018-10-02 19:05 | History & Physical Report ---
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 We will employ pankaj tropenic precautions and follow with therapy for the anaplasmosis. one additional dose of neupogen was administered (6) Anemia: Patient's anemia is likely multifactorial including chemotherapy-induced anemia and anemia of chronic disease (7) LFTs abnormal: Abnormal LFTs are suspected to be from her anaplasmosis History of Present Illness Primary Care Provider: Be Segura DO Patient presents emergency department approximately 1 day after chemotherapy. She was in the ER proxy 4 days ago with dizziness and at that time they thought she was dehydrated from a chemotherapy-induced diarrhea. She was rehydrated and her lecture lites were repleted she was released to home. She presents with similar symptoms of dizziness some mild headache dyspnea on exertion and ringing in her ears. Patient been having nausea at home using Zofran and Compazine and also Ativan for nausea has been in touch with her physician at [place] Dr. santoyo oncologist caring for her. She has no local oncologist in [facility]. Emergency department she is found to be neutropenic although her white blood cell count is at 3.6 her total neutrophil count is at 670. Laboratory called and [facility] anaplasmosis inclusion in her peripheral smear. She is hyponatremic hypokalemic she is abnormal LFTs and a significantly abnormal EKG although negative troponin. This patient also feels her diarrhea is usual for her. She did receive 5 days of Neupogen post post post chemotherapy. She is no known coronary disease and did have an echocardiogram prior to treatment of her chemotherapy. Her is also reminded that she does have occasional chest pain but none currently Allergies Allergy/AdvReac Type Severity Reaction Status Date / Time fentanyl AdvReac Mild Itchiness-n Verified 10/02/18 16:44 ose hydromorphone AdvReac Mild Itchiness-n Verified 10/02/18 16:44 ose SCENTED SOAPS AND LAUNDRY Allergy Intermediate rash and Uncoded 10/02/18 16:44 PRODUCTS itching SEASONAL Allergy Intermediate sneezing, Uncoded 10/02/18 16:44 watery eyes, itching Home Medications Home Medications Medication Instructions Recorded Confirmed Type albuterol sulfate [ProAir HFA] 1 puff INHALATION Q4H PRN 05/25/18 10/02/18 History ibuprofen 800 mg PO Q8H PRN 05/25/18 10/02/18 History ibuprofen-diphenhydramine cit 2 cap PO HS PRN 05/25/18 10/02/18 History [Ibuprofen PM] loratadine [Claritin] 10 mg PO DAILY 05/25/18 10/02/18 History methocarbamol [Robaxin-750] 750 mg PO Q6H PRN 05/25/18 10/02/18 History ondansetron HCl [Zofran] 8 mg PO TID PRN 05/25/18 10/02/18 History rizatriptan 10 mg PO DIRECTED PRN 05/25/18 10/02/18 History ciprofloxacin HCl 500 mg PO Q12H PRN 09/28/18 10/02/18 History diphenoxylate-atropine 1 tab PO TID PRN 09/28/18 10/02/18 History filgrastim-sndz [Zarxio] 480 mcg SUBCUT DIRECTED 09/28/18 10/02/18 History lansoprazole 30 mg PO DAILY 09/28/18 10/02/18 History lorazepam 1 mg PO TID PRN 09/28/18 10/02/18 History prochlorperazine maleate 5 mg PO QID PRN 09/28/18 10/02/18 History [Compazine] dexamethasone See Rx Instructions .ROUTE .COMPLEX 10/02/18 10/02/18 History lidocaine HCl [Lidocaine Viscous] 1 applic TOPICAL DIRECTED PRN 10/02/18 10/02/18 History pyridoxine (vitamin B6) [Vitamin 100 mg PO DAILY 10/02/18 10/02/18 History B-6] ranitidine HCl 150 mg PO DAILY 10/02/18 10/02/18 History Past Med/Surg History Medical History Asthma Closed fracture of cervical spine (Resolved 01/21/13) Endometriosis Ovarian cystic mass Severe dysplasia of cervix Whiplash injury to neck (Resolved 01/21/13) Breast cancer (Acute) Social History Preferred Language: [place] marital status: current occupational status: employed current occupation: employed at [employer] Feels Safe at Home: Yes Smoking Status: Never smoker Review of Systems Review of Systems: ROS: Patient is weak tired she is alopecia from her chemotherapy treatment No double vision blurry vision No problems with speech or swallowing No palpitations, chest pain or pressure No Wheezing or breathing issues No abdominal pain nausea vomiting persistent diarrhea and some dyspepsia No burning urine urine frequency or changes in color No focal joint pain or muscle pain No skin rashes or oral lesions No unusual bruising or bleeding No focused back pain or numbness or loss of strength No changes in memory or confusion Physical Exam Physical Exam: The patient appeared weak tired in no distress Vital signs as documented. Head exam is unremarkable. normocephalic, atraumatic Oropharynx without lesions or thrush Neck is without jugular venous distension, thyromegaly, or lymphademopathy Lungs are clear to auscultation and percussion. Cardiac exam reveals Rhythm is regular. First and second heart sounds normal. No rubs were heard Abdominal exam reveals normal bowel sounds, no masses, no organomegaly Extremities are nonedematous and both pedal pulses are present Neurologic exam is A&Ox3, no focal deficits, strength is equal bilateral Psychologically seems neither anxious or depressed Skin is warm Dry without bruises or lesions no visible tics were found Results & Data Vital Signs (Past 12 Hours) Vital Signs Temp Pulse Pulse Resp BP BP Pulse Ox 10/02/18 18:00 83 22 10/02/18 17:30 81 20 109/62 10/02/18 17:14 88 20 101/59 L 97 10/02/18 17:12 17 101/59 L 10/02/18 17:11 20 10/02/18 16:30 85 17 10/02/18 16:15 90 19 107/78 10/02/18 16:14 97 H 16 10/02/18 15:55 98 H 27 H 10/02/18 15:54 36.8 C 111 H 22 95/78 L 98 10/02/18 15:53 106 H 28 H 93/79 L 10/02/18 15:46 36.8 C 132 H 22 95/[address] chest 1. There is no evidence of pulmonary embolus in the main, lobar, or segmental pulmonary arteries. 2. There is no airspace consolidation or pleural effusion. 3. Mild diffuse peribronchial thickening is noted. Correlate clinically for evidence of reactive airway disease. ECG shows strong inferior lateral ST and T wave changes
--- NOTE | 2018-10-02 19:19 | Emergency Department Note ---
Entered by Ana Luisa Brown acting as a scribe for Chapin Machado MD ED Provider Note CHIEF COMPLAINT: Dizziness HISTORY OF PRESENT ILLNESS: The patient is a 47 year old female who presents to the Emergency Room with complaints of worsening dizziness starting 8 days ago. The patient reports that she is severely dizzy. She states that she has shoulder pain that radiates up throughout her neck to her head. She explains that her chest feels like it is pounding and her ears are ringing. She notes that she is constantly nauseous and normally takes Zofran and Compazine. She adds that she has exertional shortness of breath. The patient reports that rest improves her chest pounding and shortness of breath. She states that she has visual changes from her dizziness and feels like she is talking funny. She explains that she was in the [facility] ED 5 days ago for shortness of breath and received fluids that improved her symptoms. She notes that at that time her potassium, magnesium and hemoglobin were low. 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 The patient reports that she had breast cancer and goes to [place] to manage it. She states that she currently receives chemotherapy with her last treatment being 8 days ago. She explains that since her last treatment she has not been feeling like she normally does. She notes her dizziness and nausea are worse than normal. She reports that she is due to finish her chemotherapy treatments in about a month and then has an appointment with her surgeon. She states that she does not believe her breast cancer has spread. She adds that she currently sees Dr. Segura � [facility] PCP. Pt denies LOC, fevers, chills, diaphoresis, vomiting, abdominal pain, melena, hematochezia, urinary symptoms, numbness, lymphadenopathy, rash, or other complaints. REVIEW OF SYSTEMS: See HPI for pertinent positives and negatives. A total of ten systems were reviewed and were otherwise negative. PMHx/PSHx: Breast cancer, Asthma, Closed fracture of cervical spine, Endometriosis, Severe dysplasia of cervix. SOCIAL HISTORY: Patient lives at home. . Current employee of [employer]. Feels safe at home. Never a smoker. PHYSICAL EXAM: GENERAL: Awake, alert, uncomfortable and ill-appearing, in no distress. HENT: Normocephalic, atraumatic. Oropharynx unremarkable. Dry mucous membranes. EYES: PERRL. Normal conjunctiva. Sclera non-icteric. NECK: Inspection normal. Non-tender. Supple. No nuchal rigidity. FROM. No masses. RESPIRATORY: Clear to auscultation. No wheezes. No rales. Normal respiratory effort. CARDIAC: Tachycardic rate. Normal rhythm. No murmurs. No rubs. Extremities warm and well perfused. Pulses equal. No JVD. GI: Soft, non-distended. No tenderness to palpation. No rebound or guarding. No masses. RECTAL: Deferred. MUSCULOSKELETAL: Atraumatic. Chest examination reveals no tenderness. The back is symmetrical on inspection without obvious abnormality. There is no CVA tenderness to palpation. No joint edema. LOWER EXTREMITIES: Calves are equal size bilaterally and non-tender. No edema. No discoloration. NEURO: Normal sensorium. No sensory or motor deficits noted. SKIN: No rash or jaundice noted. EMERGENCY DEPARTMENT COURSE: 1530: Past medical records reviewed. The patient was evaluated in room A12B, and a complete history and physical examination were performed. 1604: I updated the patient at this time. 1718: I reevaluated the patient at this time who is feeling a little better at this time. 1746: I discussed the patient�s case with Dr. Christel DAVALOS Pathologist who will review the patient�s slides. 1837: I spoke with Dr. Kearney who recommends initiation for treatment of anaplasmosis based upon her review of blood work. 1853: I discussed the patient's case with Dr. Nicki VALENCIA hospitalist. He will evaluate the patient for further management. MEDICAL DECISION MAKING: Prior records/ancillary studies reviewed. Last ER visit noted. Patient was hydrated. Electrolyte abnormalities were corrected. Nursing notes reviewed and agree them. Additional history obtained from family. The patient's history was concerning for diarrhea, dizziness, weakness, and recent chemotherapy. Differential diagnosis: Etiologies such as metabolic, infection, hypo/hyperglycemia, electrolyte abnormalities, cardiac sources, intracerebral event, toxicologic, neurologic, as well as others were entertained. Physical examination: As above. The patient was tachycardic on presentation. Her blood pressure was mildly low. Orthostatic testing did not reveal significant drop in blood pressure but she became extremely tachycardic. ER treatment provided: IV Lock Normal saline hydration IV Zofran On reassessment the patient felt better. IV magnesium IV potassium IV doxycycline Diagnostics interpretation by me: ECG: Inferolateral T wave changes were new compared to prior. The labs revealed anemia and neutropenia on CBC. Differential and pathologic review was concerning for anaplasmosis. Chemistry panel revealed hypo-kalemia as well as hypomagnesemia. The patient's troponin is normal. Imaging studies: CT imaging of the chest did not reveal any evidence of pulmonary embolism. Reactive airway disease noted. No pneumonia or pneumothorax. The patient is dehydrated. She has electrolyte abnormalities. She is anemic and has acute electrocardiogram changes. She had a negative troponin. The patient has findings concerning for anaplasmosis. She does have risk factors. She was treated as above. She will need further management in the hospital. The patient and family are in agreement. Consultation: A consultation was placed with the hospitalist. The case was discussed and diagnostics were reviewed. The patient was evaluated in the ER for further treatment. IMPRESSION: Dehydration, Anaplasmosis, Neutropenia, Hypokalemia, Hypomagnesemia, Elevated LFTs PLAN: Being Evaluated by Hospitalist The scribe's documentation has been prepared under my direction and personally reviewed by me in its entirety. I confirm that the note above accurately reflec ts all work, treatment, procedures, and medical decision making performed by me. Impression & Plan Dehydration, Hypokalemia, Hypomagnesemia, Anaplasmosis, Neutropenia, Elevated LFTs Past Med/Surg History Medical History Asthma Closed fracture of cervical spine (Resolved 01/21/13) Endometriosis Ovarian cystic mass Severe dysplasia of cervix Whiplash injury to neck (Resolved 01/21/13) Breast cancer (Acute) Social History Preferred Language: Syrian marital status: current occupational status: employed current occupation: employed at [employer] Feels Safe at Home: Yes Smoking Status: Never smoker Results & Data Vital Signs Vital Signs - 24 hr 10/02/18 15:46 10/02/18 15:53 10/02/18 15:54 Temperature 36.8 C 36.8 C Temperature Source Oral Oral Sepsis Recent Fever Within 48 Hours No Sepsis New/Unexplained Change in Mental Status No Sepsis Action Taken by Nursing No Action Required Pulse Rate - Lying Pulse Rate - Sitting Pulse Rate - Standing Pulse Rate 132 H 106 H 111 H Pulse Rate [Finger] Respiratory Rate 22 28 H 22 Respiratory Effort / Characteristics Non-Labored Spontaneous Blood Pressure - Lying Blood Pressure- Standing Blood Pressure 95/78 L 93/79 L 95/78 L Blood Pressure [Right Arm] Blood Pressure Mean 83 83 83 Blood Pressure Mean [Right Arm] Blood Pressure Position Lying Lying Pulse Oximetry 96 98 Oxygen Delivery Method Room Air Room Air 10/02/18 15:55 10/02/18 16:01 10/02/18 16:14 Temperature Temperature Source Sepsis Recent Fever Within 48 Hours Sepsis New/Unexplained Change in Mental Status Sepsis Action Taken by Nursing Pulse Rate - Lying 95 H Pulse Rate - Sitting 99 H Pulse Rate - Standing 145 H Pulse Rate 98 H 97 H Pulse Rate [Finger] Respiratory Rate 27 H 16 Respiratory Effort / Characteristics Blood Pressure - Lying 95/78 L Blood Pressure- Standing 93/79 L Blood Pressure Blood Pressure [Right Arm] Blood Pressure Mean Blood Pressure Mean [Right Arm] Blood Pressure Position Pulse Oximetry Oxygen Delivery Method 10/02/18 16:15 10/02/18 16:30 10/02/18 17:11 Temperature Temperature Source Sepsis Recent Fever Within 48 Hours Sepsis New/Unexplained Change in Mental Status Sepsis Action Taken by Nursing Pulse Rate - Lying Pulse Rate - Sitting Pulse Rate - Standing Pulse Rate 90 85 Pulse Rate [Finger] Respiratory Rate 19 17 20 Respiratory Effort / Characteristics Blood Pressure - Lying Blood Pressure- Standing Blood Pressure 107/78 Blood Pressure [Right Arm] Blood Pressure Mean 87 Blood Pressure Mean [Right Arm] Blood Pressure Position Pulse Oximetry Oxygen Delivery Method 10/02/18 17:12 10/02/18 17:14 10/02/18 17:30 Temperature Temperature Source Sepsis Recent Fever Within 48 Hours Sepsis New/Unexplained Change in Mental Status Sepsis Action Taken by Nursing Pulse Rate - Lying Pulse Rate - Sitting Pulse Rate - Standing Pulse Rate 81 Pulse Rate [Finger] 88 Respiratory Rate 17 20 20 Respiratory Effort / Characteristics Blood Pressure - Lying Blood Pressure- Standing Blood Pressure 101/59 L 109/62 Blood Pressure [Right Arm] 101/59 L Blood Pressure Mean 73 77 Blood Pressure Mean [Right Arm] 73 Blood Pressure Position Pulse Oximetry 97 Oxygen Delivery Method Room Air 10/02/18 18:00 Temperature Temperature Source Sepsis Recent Fever Within 48 Hours Sepsis New/Unexplained Change in Mental Status Sepsis Action Taken by Nursing Pulse Rate - Lying Pulse Rate - Sitting Pulse Rate - Standing Pulse Rate 83 Pulse Rate [Finger] Respiratory Rate 22 Respiratory Effort / Characteristics Blood Pressure - Lying Blood Pressure- Standing Blood Pressure Blood Pressure [Right Arm] Blood Pressure Mean Blood Pressure Mean [Right Arm] Blood Pressure Position Pulse Oximetry Oxygen Delivery Method Home Medications Current Medication List: was personally reviewed by me Laboratory Data Attestation: I reviewed the patient's lab results. Result diagrams: 10/02/18 16:10 10/02/18 16:10 Lab Results 10/02/18 10/02/18 10/02/18 Range/Units 16:10 16:10 16:10 WBC 3.60 L (4.8-10.8) K/uL RBC 3.07 L (4.2-5.4) M/uL Hgb 9.5 L (12.0-16.0) g/dL Hct 26.9 L (37-47) % MCV 87.6 (80-100) fL MCH 30.9 (25-34) pg MCHC 35.3 (32-36) g/dL RDW Std Deviation 56.8 H (36.4-46.3) fL RDW Coeff of Ayo 17.9 H (11.5-14.5) % Plt Count 122 L (130-400) K/uL MPV 9.2 (7.4-10.4) fL Immature Gran % (Auto) 0.0 % Neut % (Auto) 18.5 % Lymph % (Auto) 54.2 % Lassen % (Auto) 26.7 % Eos % (Auto) 0.3 % Baso % (Auto) 0.3 % Immature Gran # (Auto) 0.00 (0.00-0.02) K/uL Neut # (Auto) 0.67 L* (1.4-6.5) K/uL Lymph # (Auto) 1.95 (1.2-3.4) K/uL Lassen # (Auto) 0.96 H (0.11-0.59) K/uL Eos # (Auto) 0.01 (0-0.5) K/uL Baso # (Auto) 0.01 (0-0.2) K/uL Toxic Granulation 1+ Peripher Smr Path Cons Sodium 137 (136-145) mmol/L Potassium 3.1 L (3.5-5.1) mmol/L Chloride 103 (98-107) mmol/L Carbon Dioxide 24 (21-32) mmol/L Anion Gap 11.0 (3-11) BUN 18 (7-18) mg/dl Creatinine 1.33 H (0.6-1.2) mg/dl Est Cr Clr Drug Dosing 50.8 ml/min Est GFR ( Amer) 55.0 Est GFR (Non-Af Amer) 47.5 BUN/Creatinine Ratio 13.3 (10-20) Glucose 108 H (70-99) mg/dl Calcium 9.4 (8.5-10.1) mg/dl Magnesium 1.5 L (1.8-2.4) mg/dl Total Bilirubin 1.2 H (0.2-1) mg/dl AST 72 H (15-37) U/L ALT 129 H (12-78) U/L Alkaline Phosphatase 106 (45-117) U/L Troponin I < 0.015 (0-0.045) ng/ml Total Protein 6.9 (6.4-8.2) gm/dl Albumin 4.0 (3.4-5.0) gm/dl Globulin 2.9 (2.5-4.0) gm/dl Albumin/Globulin Ratio 1.4 (0.9-2) TSH 1.190 (0.300-4.500) uIu/ml Urine Color Urine Appearance (Clear) Urine pH (4.5-7.5) Ur Specific [place] (1.000-1.030) Urine Protein (Negative) Urine Glucose (UA) (Negative) Urine Ketones (Negative) Urine Blood (Negative) Urine Nitrite (Negative) Urine Bilirubin (Negative) Urine Urobilinogen (Negative) Ur Leukocyte Esterase (Negative) Urine WBC (Auto) (0-5) /hpf Urine RBC (Auto) (0-4) /hpf U Hyaline Cast (Auto) (0-5) /lpf U Epithel Cells (Auto) (0-5) /lpf Urine Bacteria (Auto) (Negative) Ur Renal Epithelial Cell (0-5) /lpf Granular Casts (0) /lpf WBC Casts (0) /lpf Lyme Disease IgG Ab (Negative) Lyme Disease IgM Ab (Negative) Blood Type O Positive Antibody Screen NEGATIVE 10/02/18 10/02/18 10/02/18 Range/Units 16:10 16:12 18:15 WBC (4.8-10.8) K/uL RBC (4.2-5.4) M/uL Hgb (12.0-16.0) g/dL Hct (37-47) % MCV (80-100) fL MCH (25-34) pg MCHC (32-36) g/dL RDW Std Deviation (36.4-46.3) fL RDW Coeff of Ayo (11.5-14.5) % Plt Count (130-400) K/uL MPV (7.4-10.4) fL Immature Gran % (Auto) % Neut % (Auto) % Lymph % (Auto) % Lassen % (Auto) % Eos % (Auto) % Baso % (Auto) % Immature Gran # (Auto) (0.00-0.02) K/uL Neut # (Auto) (1.4-6.5) K/uL Lymph # (Auto) (1.2-3.4) K/uL Lassen # (Auto) (0.11-0.59) K/uL Eos # (Auto) (0-0.5) K/uL Baso # (Auto) (0-0.2) K/uL Toxic Granulation Peripher Smr Path Cons Cancelled Sodium (136-145) mmol/L Potassium (3.5-5.1) mmol/L Chloride (98-107) mmol/L Carbon Dioxide (21-32) mmol/L Anion Gap (3-11) BUN (7-18) mg/dl Creatinine (0.6-1.2) mg/dl Est Cr Clr Drug Dosing ml/min Est GFR ( Amer) Est GFR (Non-Af Amer) BUN/Creatinine Ratio (10-20) Glucose (70-99) mg/dl Calcium (8.5-10.1) mg/dl Magnesium (1.8-2.4) mg/dl Total Bilirubin (0.2-1) mg/dl AST (15-37) U/L ALT (12-78) U/L Alkaline Phosphatase (45-117) U/L Troponin I (0-0.045) ng/ml Total Protein (6.4-8.2) gm/dl Albumin (3.4-5.0) gm/dl Globulin (2.5-4.0) gm/dl Albumin/Globulin Ratio (0.9-2) TSH (0.300-4.500) uIu/ml Urine Color Yellow Urine Appearance Clear (Clear) Urine pH 8.0 H (4.5-7.5) Ur Specific [place] 1.044 H (1.000-1.030) Urine Protein Trace H (Negative) Urine Glucose (UA) Negative (Negative) Urine Ketones Trace H (Negative) Urine Blood 1+ H (Negative) Urine Nitrite Negative (Negative) Urine Bilirubin Negative (Negative) Urine Urobilinogen Negative (Negative) Ur Leukocyte Esterase Negative (Negative) Urine WBC (Auto) 1-5 (0-5) /hpf Urine RBC (Auto) 0-4 (0-4) /hpf U Hyaline Cast (Auto) 5-10 H (0-5) /lpf U Epithel Cells (Auto) >30 H (0-5) /lpf Urine Bacteria (Auto) Negative (Negative) Ur Renal Epithelial Cell 0-5 (0-5) /lpf Granular Casts 1-5 H (0) /lpf WBC Casts 1-5 H (0) /lpf Lyme Disease IgG Ab Negative (Negative) Lyme Disease IgM Ab Negative (Negative) Blood Type Antibody Screen Administered Medications Sodium Chloride (Nss 1000ml) 1,000 mls @ 125 mls/hr IV .Q8H MICKEY Stop: 10/02/18 23:44 Last Admin: 10/02/18 17:27 Dose: 125 mls/hr Documented by: [id number] Ioversol (Optiray 320 125ml) 114 ml IV ONCE PRN PRN Reason: Interaction Checking Stop: 10/06/18 16:58 Last Admin: 10/02/18 16:59 Dose: 114 ml Documented by: [id number] Discontinued Medications Sodium Chloride (Nss 1000ml) 1,000 mls @ 999 mls/hr IV .Q1H1M MICKEY Stop: 10/02/18 16:45 Last Infusion: 10/02/18 17:27 Dose: 0 mls/hr Documented by: [id number] Admin: 10/02/18 16:20 Dose: 999 mls/hr Documented by: [id number] Ondansetron HCl (Zofran) 8 mg in 54 mls @ 216 mls/hr IV NOW STA Stop: 10/02/18 15:58 Last Infusion: 10/02/18 16:39 Dose: 0 mls/hr Documented by: [id number] Admin: 10/02/18 16:20 Dose: 216 mls/hr Documented by: [id number] Potassium Chloride (K Rosendo / Wtr) 10 meq in 100 mls @ 100 mls/hr IV ONE ONE Stop: 10/02/18 17:59 Last Admin: 10/02/18 18:00 Dose: 100 mls/hr Documented by: [id number] Magnesium Sulfate/Dextrose (Magnesium Sulfate / D5w) 1 gm in 100 mls @ 100 mls/hr IV ONE ONE Stop: 10/02/18 17:59 Last Infusion: 10/02/18 18:21 Dose: 0 mls/hr Documented by: [id number] Admin: 10/02/18 17:12 Dose: 100 mls/hr Documented by: [id number] Imaging Data Radiologist's Impression: Radiology results as stated below per my review and t he radiologist's interpretation: CT ANGIOGRAM OF THE CHEST CLINICAL HISTORY: Dyspnea. COMPARISON STUDY: Chest x-ray dated 10/02/2018. Chest CT dated 01/21/2013. TECHNIQUE: Following the IV administration of 114 cc of Optiray 320, CT angiogram of the chest was performed from the upper abdomen to the thoracic inlet utilizing the pulmonary embolus protocol. Images are reviewed in the axial, sagittal, and coronal planes. 3-D MIPS images are created and assessed. IV contrast was administered without complication. A dose lowering technique was utilized adhering to the principles of ALARA. CT DOSE: 230.61 mGy.cm FINDINGS: Thyroid: Imaged portions of the thyroid gland are normal in size and attenuation. Thoracic aorta: The thoracic aorta is normal in caliber and demonstrates standard 3-vessel arch anatomy. No dissection is seen. Pulmonary vasculature: The pulmonary trunk is normal in caliber. There are no filling defects identified in main, lobar, or segmental pulmonary branches to suggest pulmonary embolus. Heart: A right subclavian central venous infusion port is in place. The heart is top normal in size and without pericardial effusion. Lungs and pleural spaces: Evaluation of the lung parenchyma is modestly degraded by motion artifact. No airspace consolidation or pleural effusion is identified. The trachea and central airways are clear. Mild diffuse peribronchial thickening is noted. Mediastinum: There is no mediastinal lymphadenopathy. Anali: Clear. Axillae: There is no axillary lymphadenopathy. Upper abdomen: Small hepatic cyst 7 present dating back to 2012 and measure up to 12 mm. Partially visualized upper abdominal viscera is otherwise within normal limits. Skeletal structures: No lytic or blastic bony lesions are seen. IMPRESSION: 1. There is no evidence of pulmonary embolus in the main, lobar, or segmental pulmonary arteries. 2. There is no airspace consolidation or pleural effusion. 3. Mild diffuse peribronchial thickening is noted. Correlate clinically for evidence of reactive airway disease. Electronically signed by: Kj Gaming M.D. 10/02/2018 5:12 PM XR chest 1V portable CLINICAL HISTORY: 47 years-old Female presenting with weakness. TECHNIQUE: Portable upright AP view of the chest was obtained. COMPARISON: 09/28/2018. FINDINGS: Tunneled right subclavian or internal jugular catheter terminates in the mid SVC. Cardiac silhouette top normal in size. No focal opacity. No large effusion or pneumothorax. Osseous structures normal. Cholecystectomy clips noted. IMPRESSION: 1. Borderline cardiomegaly. Otherwise no acute cardiopulmonary disease. Electronically signed by: Kevin Pope M.D. 10/02/2018 4:33 PM ECG Data Attestation: I personally reviewed and interpreted this ECG as follows: Indication: weakness Rate (beats per minute): 94 Rhythm: normal sinus Findings: + ST depression (Slight ST depression laterally. ) and + T-wave inversion (Inferior and anterolateral); no PAC and no PVC Comparison ECG Date: from (05/25/18) Change: the following changes noted (T wave inversions are more pronounced and have replaced a non-specific ST abnormality.) Blood Pressure Blood Pressure Findings: Normal blood pressure Blood Pressure Disposition: further management by hospitalist Discharge Plan Visit Data Chief Complaint: Dizziness ED Provider: Chapin Machado Discharge Problem: Dehydration, Hypokalemia, Hypomagnesemia, Anaplasmosis, Neutropenia, Elevated LFTs Patient Disposition: Being Evaluated by Hospitalist Forms Stand Alone Forms: [employer] Prescriptions Prescriptions: No Action prochlorperazine maleate [Compazine] 5 mg Tablet 5 mg PO QID PRN (Reason: Nausea And Vomiting) RF: 0 diphenoxylate-atropine 2.5-0.025 mg tablet 1 tab PO TID PRN (Reason: Loose Stool) RF: 0 ciprofloxacin HCl 500 mg tablet 500 mg PO Q12H PRN (Reason: UTI) RF: 0 lansoprazole 30 mg capsule,delayed release(DR/EC) 30 mg PO DAILY RF: 0 lorazepam 1 mg tablet 1 mg PO TID PRN (Reason: Anxiety) RF: 0 Zarxio 480 mcg/0.8 mL syringe 480 mcg subcut DIRECTED RF: 0 ibuprofen 800 mg Tablet 800 mg PO Q8H PRN (Reason: Pain) RF: 0 ondansetron HCl [Zofran] 8 mg Tablet 8 mg PO TID PRN (Reason: Nausea And Vomiting) RF: 0 rizatriptan 10 mg Tablet 10 mg PO DIRECTED PRN (Reason: Migraine Headache) RF: 0 methocarbamol [Robaxin-750] 750 mg Tablet 750 mg PO Q6H PRN (Reason: Muscle Spasm) RF: 0 albuterol sulfate [ProAir HFA] 90 mcg/actuation Hfa Aerosol Inhaler 1 puff INHALATION Q4H PRN (Reason: Shortness Of Breath Or Wheezing) RF: 0 loratadine [Claritin] 10 mg Tablet 10 mg PO DAILY RF: 0 ibuprofen-diphenhydramine cit [Ibuprofen PM] 200-38 mg Tablet 2 cap PO HS PRN (Reason: Sleep) RF: 0 dexamethasone 4 mg tablet See Rx Instructions .ROUTE .COMPLEX RF: 0 lidocaine HCl [Lidocaine Viscous] 2 % solution 1 applic topical DIRECTED PRN (Reason: Port Access) RF: 0 ranitidine HCl 150 mg Tablet 150 mg PO DAILY RF: 0 Vitamin B-6 50 mg Capsule 100 mg PO DAILY RF: 0 Referrals Referrals: Be Segura DO [Primary Care Provider] - The scribe's documentation has been prepared under my direction and personally reviewed by me in its entirety. I confirm that the note above accurately reflects all work, treatment, procedures, and medical decision making performed by me.
[2018-10-02] MEDS ORDERED: POLYETHYLENE (MIRALAX) 17 GM PACK PO PRN (20:41)
[2018-10-02] MEDS ORDERED: FILGRASTIM 300 MCG/ML VIAL SQ ONE (20:41)
[2018-10-02] MEDS ORDERED: ACETAMINOPHEN 325 MG TAB PO PRN (20:41)
[2018-10-02] MEDS ORDERED: ALUMINUM/MAGNESIUM SUSP 30 ML UDC PO PRN (20:41)
[2018-10-02] MEDS ORDERED: MoRPHine SULFATE 2 MG/ML CARP IV PRN (20:41)
[2018-10-02] MEDS ORDERED: ALBUTEROL HFA 8 GM INHALER INH PRN (21:00)
[2018-10-02] MEDS: POTASSIUM CHLORIDE 40 MEQ in SODIUM CHLORIDE 0.9% 1000ML 1,000 ML IV SCH (21:39)
[2018-10-02] MEDS: HEPARIN SOD 5,000 UNIT/0.5 ML VIAL SQ SCH (21:40)
[2018-10-02] MEDS: DIPHENOXYLATE/ATROPINE 2.5/0.025MG TAB PO PRN (21:42)
[2018-10-02] MEDS: OXYCODONE HCL IR 5 MG TAB (IMMEDIATE RELEASE) PO PRN (23:53)
[2018-10-02] MEDS: LORazepam 1 MG TAB PO PRN (23:53)
[2018-10-02] MEDS: ONDANSETRON INJ 2 MG/ML 2 ML VIAL IV PRN (23:53)
[2018-10-03 06:01] LABS: Hematocrit (blood only) 21.8 % (37-47); Hemoglobin 7.6 g/dL (12.0-16.0); Mean Corpuscular Hgb Conc 34.9 g/dL (32-36); Mean Corpuscular Volume 89.7 fL (80-100); RDW Coefficient of Variation 18.3 % (11.5-14.5); Red Blood Count 2.43 M/uL (4.2-5.4); White Blood Count 5.21 K/uL (4.8-10.8)
[2018-10-03] MEDS: POTASSIUM CHLORIDE 40 MEQ in SODIUM CHLORIDE 0.9% 1000ML 1,000 ML IV SCH ×2 (06:33→18:18)
[2018-10-03 06:49] LABS: Alanine Aminotransferase 100 U/L (12-78); Albumin Level 3.2 gm/dl (3.4-5.0); Alkaline Phosphatase 88 U/L (45-117); Aspartate Aminotransferase 48 U/L (15-37); BUN Creatinine Ratio 10.6 (10-20); Bilirubin Direct 0.2 mg/dl (0-0.2); Bilirubin,Total 0.7 mg/dl (0.2-1); Blood Urea Nitrogen 10 mg/dl (7-18); Calcium 8.2 mg/dl (8.5-10.1); Carbon Dioxide 24 mmol/L (21-32); Chloride 110 mmol/L (98-107); Creatinine Clr Calc Pharmacy 69.9 ml/min; Est GFR (African American) 80.6; Est GFR (Non-African American) 69.6; Glucose 79 mg/dl (70-99); Magnesium 1.7 mg/dl (1.8-2.4); Potassium 3.6 mmol/L (3.5-5.1); Sodium 139 mmol/L (136-145); Total Protein 5.4 gm/dl (6.4-8.2); Troponin I < 0.015 ng/ml (0-0.045)
[2018-10-03 07:08] LABS: Basophils # (auto) 0.01 K/uL (0-0.2); Basophils % (auto) 0.2 %; Eosinophils # (auto) 0.02 K/uL (0-0.5); Eosinophils % (auto) 0.4 %; Immature Granulocytes # (auto) 0.15 K/uL (0.00-0.02); Immature Granulocytes % (auto) 2.9 %; Lymphocytes # (auto) 2.88 K/uL (1.2-3.4); Lymphocytes % (auto) 55.3 %; Mean Platelet Volume 9.5 fL (7.4-10.4); Monocytes # (auto) 0.75 K/uL (0.11-0.59); Monocytes % (auto) 14.4 %; Neutrophils % (auto) 26.8 %; Platelet Count 89 K/uL (130-400); Platelet Estimate Decreased (Normal); Toxic Granulation 1+
[2018-10-03] MEDS: ONDANSETRON INJ 2 MG/ML 2 ML VIAL IV PRN ×3 (08:11→21:01)
[2018-10-03] MEDS: DOXYCYCLINE HYCLATE 100 MG in DEXTROSE 5% 100 ML IV SCH ×2 (08:15→19:51)
[2018-10-03] MEDS: LORATADINE 10 MG TAB PO SCH (08:16)
[2018-10-03] MEDS: PYRIDOXINE HCL 50 MG TAB PO SCH (08:16)
[2018-10-03] MEDS: HEPARIN SOD 5,000 UNIT/0.5 ML VIAL SQ SCH ×2 (08:16→21:02)
[2018-10-03] MEDS ORDERED: PANTOprazole 40 MG TAB PO SCH (09:00)
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
[2018-10-03] MEDS ORDERED: PROCHLORPERAZINE 10 MG in SYRINGE 8 ML IV PRN (14:13)
[2018-10-03] MEDS ORDERED: SODIUM CHLORIDE 0.9% 250 ML IV PRN ×3 (14:15→21:33)
[2018-10-03] MEDS: OXYCODONE HCL IR 5 MG TAB (IMMEDIATE RELEASE) PO PRN (14:17)
--- NOTE | 2018-10-03 14:20 | Hospitalist Progress Note ---
Date of Service October 03, 2018 Assessment & Plan (1) Anaplasmosis: Patient admitted with dizziness, fatigue, thrombocytopenia and neutropenia, along with elevated LFTs. Peripheral smear from pathology with possible cytoplasmic inclusion bodies that could be consistent with anaplasmosis, however also received multiple rounds of chemotherapy -Nonetheless, remains afebrile, neutropenia improving with dose of Neupogen yesterday. Platelet count dropped to 89 LFTs elevated but are improved today from previous -Follow LFTs, CBC -Continue IV doxycycline 100 mg every 12 and then eventually convert to doxycycline 100 mg p.o. twice daily times total 14-day course as per ID recommendations -Serology sent out for anaplasmosis but likely will be back for 1 week (2) Pancytopenia: Secondary to combination of antineoplastic therapy as well as possible a naplasmosis as above -Was given Neupogen x6 doses and now completed-WBC count now up to normal and no longer neutropenic -Platelets worsening as above to 89 today, no transfusion necessary no evidence of bleeding -Hemoglobin dropped 2 g down to 7.6 today-transfuse 2 units PRBCs now especially given dizziness with standing and dyspnea with minimal exertion -Follow CBC in the morning (3) Hypokalemia: Repleted and now normalized -Follow chemistry panel (4) Hypomagnesemia: Still remains mildly low despite replacement yesterday -Give another magnesium sulfate 1 g IV x1 -Follow magnesium level in the morning (5) Abnormal ECG: EKG with ST depressions and T wave inversions throughout inferior and anterolateral leads that is improved on repeat ECG today She did have chest pain with exertion on admission Troponins are negative serially Echocardiogram without wall motion abnormalities Cardiology saw the patient and does not recommend any further cardiac work-up and suspects this is likely due to strain from chemotherapy, recent illness, anemia, etc. -We will follow -No need to remain on telemetry (6) Neutropenia: As above -Resolved with Neupogen (7) Anemia: Patient's anemia is likely multifactorial including chemotherapy-induced anemia and anemia of chronic disease-as above No evidence of bleeding from anywhere Transfusing (8) LFTs abnormal: Abnormal LFTs are suspected to be from her anaplasmosis-improving today -Follow LFTs in the morning No abdominal pain (9) Dizziness: Likely secondary to hypotension, dehydration, and acute anemia -Giving aggressive IV fluids and PRBC transfusion -Follow (10) Chest pain: As above, CT angiogram chest negative for PE or pneumonia Resolved (11) Dyspnea on exertion: As above, likely secondary to anemia CT angiogram of the chest negative for PE and pneumonia, with evidence of reactive airway disease Echocardiogram without evidence of heart failure -Transfusing (12) Breast cancer: Currently undergoing chemotherapy at [facility], has 2 more rounds to go and then plans for bilateral mastectomy She has invasive adenocarcinoma of the left breast and a less aggressive type of the right breast as per her report -Continue to follow with oncology after discharge (13) DVT prophylaxis: Heparin SQ Disposition-stable for transfer to medical floor, continued stay for further IV antibiotics, treatment of low blood pressure and acute anemia -I discussed the case with her oncologist at [place], Dr. Nickie Downey Subjective Patient still feeling dizzy today and very winded even with walking short distances across the room. No further chest pain. No abdominal pain, nausea is starting to return but this is been chronic with getting her chemotherapy. She has not vomited. She denies any bloody stools or black tarry stools. She has chronic loose stools since being on chemotherapy but none worse than usual. I discussed her case with her oncologist at [place] today and the phone. Review of Systems Review of Systems: All systems reviewed & are unremarkable except as noted in HPI & below Physical Exam Constitutional: WD/WN, vitals as above (With alopecia) Eyes: PERRL, conjunctivae normal, anicteric sclerae ENMT: external ear and nose normal, oropharynx normal Neck: trachea midline, no thyromegaly Respiratory: normal respiratory effort, lungs clear to auscultation Cardiovascular: RRR, no murmur, no edema Gastrointestinal (Abdomen): normal bowel sounds, soft, nontender, no hepatosplenomegaly Musculoskeletal: Extremities: extremities normal to inspection; no cyanosis and no clubbing Skin: no rashes, warm and dry + pallor Neurologic: moves all extremities and awake; no focal motor deficits Psychiatric: A+Ox3, euthymic affect Results & Data Vital Signs (Past 12 Hours) Vital Signs Temp Pulse Pulse Resp BP Pulse Ox 10/03/18 11:14 36.7 C 85 16 98/55 L 97 10/03/18 08:08 96/55 L 10/03/18 07:20 80 10/03/18 07:09 36.4 C L 70 18 86/53 L 97 10/03/18 02:56 36.7 C 91 H 18 95/55 L 97 Laboratory Results 10/03/18 10/03/18 10/02/18 Range/Units 05:23 05:23 16:10 WBC 5.21 (4.8-10.8) K/uL RBC 2.43 L (4.2-5.4) M/uL Hgb 7.6 L (12.0-16.0) g/dL Hct 21.8 L (37-47) % MCV 89.7 (80-100) fL MCH 31.3 (25-34) pg MCHC 34.9 (32-36) g/dL RDW Std Deviation 60.0 H (36.4-46.3) fL RDW Coeff of Ayo 18.3 H (11.5-14.5) % Plt Count 89 L (130-400) K/uL MPV 9.5 (7.4-10.4) fL Immature Gran % (Auto) 2.9 % Neut % (Auto) 26.8 % Lymph % (Auto) 55.3 % Gove % (Auto) 14.4 % Eos % (Auto) 0.4 % Baso % (Auto) 0.2 % Immature Gran # (Auto) 0.15 H (0.00-0.02) K/uL Neut # (Auto) 1.40 (1.4-6.5) K/uL Lymph # (Auto) 2.88 (1.2-3.4) K/uL Gove # (Auto) 0.75 H (0.11-0.59) K/uL Eos # (Auto) 0.02 (0-0.5) K/uL Baso # (Auto) 0.01 (0-0.2) K/uL Toxic Granulation 1+ Platelet Estimate Decreased L (Normal) Peripher Smr Path Cons Sodium 139 (136-145) mmol/L Potassium 3.6 D (3.5-5.1) mmol/L Chloride 110 H (98-107) mmol/L Carbon Dioxide 24 (21-32) mmol/L Anion Gap 5.0 (3-11) BUN 10 D (7-18) mg/dl Creatinine 0.97 D (0.6-1.2) mg/dl Est Cr Clr Drug Dosing 69.9 ml/min Est GFR ( Amer) 80.6 Est GFR (Non-Af Amer) 69.6 BUN/Creatinine Ratio 10.6 (10-20) Glucose 79 (70-99) mg/dl Calcium 8.2 L (8.5-10.1) mg/dl Magnesium 1.7 L (1.8-2.4) mg/dl Total Bilirubin 0.7 D (0.2-1) mg/dl Direct Bilirubin 0.2 (0-0.2) mg/dl AST 48 H (15-37) U/L ALT 100 H (12-78) U/L Alkaline Phosphatase 88 (45-117) U/L Troponin I < 0.015 (0-0.045) ng/ml Total Protein 5.4 L D (6.4-8.2) gm/dl Albumin 3.2 L (3.4-5.0) gm/dl Stl C. diff Tox B Gene (Neg) Blood Type O Positive Antibody Screen NEGATIVE Crossmatch See Detail 10/02/18 10/02/18 Range/Units 16:10 14:20 WBC (4.8-10.8) K/uL RBC (4.2-5.4) M/uL Hgb (12.0-16.0) g/dL Hct (37-47) % MCV (80-100) fL MCH (25-34) pg MCHC (32-36) g/dL RDW Std Deviation (36.4-46.3) fL RDW Coeff of Ayo (11.5-14.5) % Plt Count (130-400) K/uL MPV (7.4-10.4) fL Immature Gran % (Auto) % Neut % (Auto) % Lymph % (Auto) % [place] % (Auto) % Eos % (Auto) % Baso % (Auto) % Immature Gran # (Auto) (0.00-0.02) K/uL Neut # (Auto) (1.4-6.5) K/uL Lymph # (Auto) (1.2-3.4) K/uL Gove # (Auto) (0.11-0.59) K/uL Eos # (Auto) (0-0.5) K/uL Baso # (Auto) (0-0.2) K/uL Toxic Granulation Platelet Estimate (Normal) Peripher Smr Path Cons Sodium (136-145) mmol/L Potassium (3.5-5.1) mmol/L Chloride (98-107) mmol/L Carbon Dioxide (21-32) mmol/L Anion Gap (3-11) BUN (7-18) mg/dl Creatinine (0.6-1.2) mg/dl Est Cr Clr Drug Dosing ml/min Est GFR ( Amer) Est GFR (Non-Af Amer) BUN/Creatinine Ratio (10-20) Glucose (70-99) mg/dl Calcium (8.5-10.1) mg/dl Magnesium (1.8-2.4) mg/dl Total Bilirubin (0.2-1) mg/dl Direct Bilirubin (0-0.2) mg/dl AST (15-37) U/L ALT (12-78) U/L Alkaline Phosphatase (45-117) U/L Troponin I (0-0.045) ng/ml Total Protein (6.4-8.2) gm/dl Albumin (3.4-5.0) gm/dl Stl C. diff Tox B Gene Negative Cdiff Gene (Neg) Blood Type Antibody Screen Crossmatch
[2018-10-03] MEDS ORDERED: MAGNESIUM SULFATE / D5W 1 GM/100 ML BAG IV SCH (15:00)
[2018-10-03] MEDS: PANTOprazole 40 MG TAB PO SCH ×2 (19:52)
[2018-10-03] MEDS: LORazepam 1 MG TAB PO PRN (21:01)
[2018-10-04 06:15] LABS: Hematocrit (blood only) 27.5 % (37-47); Hemoglobin 9.6 g/dL (12.0-16.0); Mean Corpuscular Hgb Conc 34.9 g/dL (32-36); Mean Corpuscular Volume 87.6 fL (80-100); RDW Coefficient of Variation 17.6 % (11.5-14.5); RDW Standard Deviation 55.7 fL (36.4-46.3); Red Blood Count 3.14 M/uL (4.2-5.4); White Blood Count 6.68 K/uL (4.8-10.8)
[2018-10-04] MEDS: DOXYCYCLINE HYCLATE 100 MG in DEXTROSE 5% 100 ML IV SCH (06:36)
[2018-10-04 06:47] LABS: Albumin Level 3.1 gm/dl (3.4-5.0); BUN Creatinine Ratio 5.6 (10-20); Bilirubin Direct 0.3 mg/dl (0-0.2); Bilirubin,Total 0.7 mg/dl (0.2-1); Calcium 8.4 mg/dl (8.5-10.1); Creatinine Clr Calc Pharmacy 76.8 ml/min; Est GFR (African American) 89.5; Est GFR (Non-African American) 77.2; Magnesium 1.7 mg/dl (1.8-2.4); Potassium 3.9 mmol/L (3.5-5.1); Total Protein 5.4 gm/dl (6.4-8.2)
[2018-10-04 06:52] LABS: Mean Platelet Volume 9.1 fL (7.4-10.4); Platelet Count 64 K/uL (130-400)
[2018-10-04 07:10] LABS: Basophils # (auto) 0.01 K/uL (0-0.2); Basophils % (auto) 0.1 %; Eosinophils # (auto) 0.01 K/uL (0-0.5); Eosinophils % (auto) 0.1 %; Immature Granulocytes # (auto) 0.02 K/uL (0.00-0.02); Immature Granulocytes % (auto) 0.3 %; Lymphocytes # (auto) 2.44 K/uL (1.2-3.4); Lymphocytes % (auto) 36.5 %; Monocytes # (auto) 0.67 K/uL (0.11-0.59); Neutrophils # (auto) 3.53 K/uL (1.4-6.5); Toxic Granulation 1+
[2018-10-04] MEDS: PYRIDOXINE HCL 50 MG TAB PO SCH (08:29)
[2018-10-04] MEDS: DIPHENOXYLATE/ATROPINE 2.5/0.025MG TAB PO PRN (08:29)
[2018-10-04] MEDS: HEPARIN SOD 5,000 UNIT/0.5 ML VIAL SQ SCH (08:29)
[2018-10-04] MEDS: LORATADINE 10 MG TAB PO SCH (08:29)
[2018-10-04] MEDS: POTASSIUM CHLORIDE 40 MEQ in SODIUM CHLORIDE 0.9% 1000ML 1,000 ML IV SCH (10:20)
[2018-10-04] MEDS: ONDANSETRON INJ 2 MG/ML 2 ML VIAL IV PRN (10:23)
--- NOTE | 2018-10-06 08:40 | Discharge Summary ---
Date of Service October 04, 2018 Admission HPI Per Admitting Provider Patient presents emergency department approximately 1 day after chemotherapy. She was in the ER proxy 4 days ago with dizziness and at that time they thought she was dehydrated from a chemotherapy-induced diarrhea. She was rehydrated and her lecture lites were repleted she was released to home. She presents with similar symptoms of dizziness some mild headache dyspnea on exertion and ringing in her ears. Patient been having nausea at home using Zofran and Compazine and also Ativan for nausea has been in touch with her physician at [facility] Dr. santoyo oncologist caring for her. She has no local oncologist in [place]. Emergency department she is found to be neutropenic although her white blood cell count is at 3.6 her total neutrophil count is at 670. Laboratory called and LTC anaplasmosis inclusion in her peripheral smear. She is hyponatremic hypokalemic she is abnormal LFTs and a significantly abnormal EKG although negative troponin. This patient also feels her diarrhea is usual for her. She did receive 5 days of Neupogen post post post chemotherapy. She is no known coronary disease and did have an echocardiogram prior to treatment of her chemotherapy. Her is also reminded that she does have occasional chest pain but none currently Admission Exam Per Admitting Provider The patient appeared weak tired in no distress Vital signs as documented. Head exam is unremarkable. normocephalic, atraumatic Oropharynx without lesions or thrush Neck is without jugular venous distension, thyromegaly, or lymphademopathy Lungs are clear to auscultation and percussion. Cardiac exam reveals Rhythm is regular. First and second heart sounds normal. No rubs were heard Abdominal exam reveals normal bowel sounds, no masses, no organomegaly Extremities are nonedematous and both pedal pulses are present Neurologic exam is A&Ox3, no focal deficits, strength is equal bilateral Psychologically seems neither anxious or depressed Skin is warm Dry without bruises or lesions no visible tics were found Principal Diagnosis Anaplasmosis Discharge Exam Constitutional WD/WN, vitals as above Eyes PERRL, conjunctivae normal, anicteric sclerae ENMT external ear and nose normal, oropharynx normal Neck trachea midline, no thyromegaly Respiratory normal respiratory effort, lungs clear to auscultation Cardiovascular RRR, no murmur, no edema Gastrointestinal (Abdomen) normal bowel sounds, soft, nontender, no hepatosplenomegaly Musculoskeletal no cyanosis or clubbing, extremities motor strength 5/5 Skin no rashes, warm and dry Neurologic patellar DTR's 2+ bilat, sensation intact and PERRL, EOMI, accommodation nl, no face palsy, no dysarthria Psychiatric A+Ox3, euthymic affect Lymphatic no cervical or axillary lymphadenopathy Discharge Data Allergies Allergy/AdvReac Type Severity Reaction Status Date / Time fentanyl AdvReac Mild Itchiness-n Verified 10/02/18 16:44 ose hydromorphone AdvReac Mild Itchiness-n Verified 10/02/18 16:44 ose Consultations 10/02/18 18:54 ED Decision to Admit Stat 10/02/18 20:41 Consult Cardiology Routine Consult Case Management - Discharge Planning Routine Consult Infectious Diseases Routine Ordered Studies 10/02/18 16:04 CT angio chest PE protocol Stat Hospital Course (1) Anaplasmosis: Patient admitted with dizziness, fatigue, thrombocytopenia and neutropenia, along with elevated LFTs. Peripheral smear from pathology with possible cytoplasmic inclusion bodies that could be consistent with an aplasmosis, however also received multiple rounds of chemotherapy -Nonetheless, remains afebrile, neutropenia improving with dose of Neupogen yesterday. Platelet count dropped to 89 LFTs elevated but are improved today from previous LFT normalizing and platelets coming up -treated with IV doxycycline 100 mg every 12 and then eventually convert to doxycycline 100 mg p.o. twice daily times total 14-day course as per ID recommendations d/c home on Doxycycline 100mg BID x 12 days -Serology sent out for anaplasmosis (2) Pancytopenia: Secondary to combination of antineoplastic therapy as well as possible anaplasmosis as above -Was given Neupogen x6 doses and now completed-WBC count normal and no longer neutropenic -Platelets low but stable, no need for transfusion, should improve with treatment of anaplasmosis -Hemoglobin dropped 2 g down to 7.6 day prior to discharge-transfused 2 units PRBCs now especially given dizziness with standing and dyspnea with minimal exertion -Hb up above 9 prior to discharge (3) Hypokalemia: Repleted and now normalized -Follow chemistry panel (4) Hypomagnesemia: normalized with IV replacement (5) Abnormal ECG: EKG with ST depressions and T wave inversions throughout inferior and anterolateral leads that is improved on repeat ECG day prior to discharge She did have chest pain with exertion on admission Troponins are negative serially Echocardiogram without wall motion abnormalities Cardiology saw the patient and does not recommend any further cardiac work-up and suspects this is likely due to strain from chemotherapy, recent illness, anemia, etc. -We will follow -No need to remain on telemetry (6) Neutropenia: As above -Resolved with Neupogen (7) Anemia: Patient's anemia is likely multifactorial including chemotherapy-induced anemia and anemia of chronic disease-as above No evidence of bleeding from anywhere Transfused two units while here follow up with PCP and oncology (8) LFTs abnormal: Abnormal LFTs are suspected to be from her anaplasmosis-improving today -Follow LFTs in the morning No abdominal pain (9) Dizziness: Likely secondary to hypotension, dehydration, and acute anemia -Giving aggressive IV fluids and PRBC transfusion -Follow (10) Chest pain: As above, CT angiogram chest negative for PE or pneumonia Resolved (11) Dyspnea on exertion: As above, likely secondary to anemia CT angiogram of the chest negative for PE and pneumonia, with evidence of reactive airway disease Echocardiogram without evidence of heart failure -Transfusing (12) Breast cancer: Currently undergoing chemotherapy at [facility], has 2 more rounds to go and then plans for bilateral mastectomy She has invasive adenocarcinoma of the left breast and a less aggressive type of the right breast as per her report -Continue to follow with oncology after discharge (13) DVT prophylaxis: Heparin SQ Disposition-stable for transfer to medical floor, continued stay for further IV antibiotics, treatment of low blood pressure and acute anemia -I discussed the case with her oncologist at [facility], Dr. Nickie Downey Total Time Total Time Spent Total Time Spent (In Minutes): 35 minutes Total Time Includes: Examination of the Patient, Discharge Planning and Medication Reconciliation Discharge Plan Discharge Items Patient Disposition: Home - Self-Care Reason For Visit: WEAKNESS,ABNORMAL ECG,ANAPLASMOSIS Discharge Diagnosis: Anaplasmosis Pancytopenia, chemotherapy induced Dizziness Condition: Good Discharge Goals: Improve disease control and Improve function Activity: Resume your previous activity Non-emergency contact: Primary Care Provider and Oncologist Call non-emergency contact if: you have any medication questions, your symptoms worsen, your pain is not controlled and you have a fever Follow-up/Referrals: Be Segura DO [Primary Care Provider] - Diet: Regular Addtl Provider Instructions: Medications: - DOXYCYCLINE: 100mg twice a day for 12 more days to treat the anaplasmosis - OXYCODONE: use as needed for pain Anaplasmosis: inclusion bodies on peripheral smear, coupled with low platelets and elevated liver enzymes confirmatory testing sent out, takes a week to come back, follow up with Dr. Segura infectious disease recommends 14 days total of doxycycline avoid excessive time in sun as doxycycline causes photosensitivity Neutropenia: resolved after several doses of Neupogen, WBC is normal Anemia: transfused two units, Hb up to 9.6 likely due to chemotherapy follow up for blood counts this week, standing order from oncologist FOLLOW UP - Dr. Segura in one week, call his office on Saturday to schedule appt - Oncology at [facility] as previously scheduled for next round of chemotherapy Prescriptions: Continued prochlorperazine maleate [Compazine] 5 mg Tablet 5 mg PO QID PRN (Reason: Nausea And Vomiting) RF: 0 diphenoxylate-atropine 2.5-0.025 mg tablet 1 tab PO TID PRN (Reason: Loose Stool) RF: 0 lansoprazole 30 mg capsule,delayed release(DR/EC) 30 mg PO DAILY RF: 0 lorazepam 1 mg tablet 1 mg PO TID PRN (Reason: Anxiety) RF: 0 Zarxio 480 mcg/0.8 mL syringe 480 mcg subcut DIRECTED RF: 0 ibuprofen 800 mg Tablet 800 mg PO Q8H PRN (Reason: Pain) RF: 0 ondansetron HCl [Zofran] 8 mg Tablet 8 mg PO TID PRN (Reason: Nausea And Vomiting) RF: 0 rizatriptan 10 mg Tablet 10 mg PO DIRECTED PRN (Reason: Migraine Headache) RF: 0 methocarbamol [Robaxin-750] 750 mg Tablet 750 mg PO Q6H PRN (Reason: Muscle Spasm) RF: 0 albuterol sulfate [ProAir HFA] 90 mcg/actuation Hfa Aerosol Inhaler 1 puff INHALATION Q4H PRN (Reason: Shortness Of Breath Or Wheezing) RF: 0 loratadine [Claritin] 10 mg Tablet 10 mg PO DAILY RF: 0 ibuprofen-diphenhydramine cit [Ibuprofen PM] 200-38 mg Tablet 2 cap PO HS PRN (Reason: Sleep) RF: 0 dexamethasone 4 mg tablet See Rx Instructions .ROUTE .COMPLEX RF: 0 lidocaine HCl [Lidocaine Viscous] 2 % solution 1 applic topical DIRECTED PRN (Reason: Port Access) RF: 0 ranitidine HCl 150 mg Tablet 150 mg PO DAILY RF: 0 Vitamin B-6 50 mg Capsule 100 mg PO DAILY RF: 0 Discontinued ciprofloxacin HCl 500 mg tablet 500 mg PO Q12H PRN (Reason: UTI) RF: 0 Stand-Alone Forms: [facility] Discharge Orders: Discharge Order (Routine); Ordered 10/04/18 Ordered By: Shan Da Silva Admission Data Admit Date/Time: 10/02/18 19:26 Attending Provider: Shan Da Silva Admit Provider: Avinash Caceres Primary Care Provider: Be Segura Other Providers: Shorty Joel ; Caren Escobedo Service: Oncology Other Interventions: Discharge Summary Assessment (RN) Last Done: 10/04/18 12:51 DC Date/Time DO NOT enter until pt leaves facility: 10/04/18 13:25
== END 2018-10-04 13:25 | disposition home or self-care (01) | DRG 867 ==
LOC: ED 15:29 → 2E 19:26 → SUATTDRO 19:26 → 2E 20:20 → 4E 10-03 14:17
DX: R07.89 Other chest pain; E83.42 Hypomagnesemia; A77.49 Other ehrlichiosis; E87.6 Hypokalemia; D61.810 Antineoplastic chemotherapy induced pancytopenia; R06.00 Dyspnea, unspecified; R79.89 Other specified abnormal findings of blood chemistry; R94.31 Abnormal electrocardiogram [ECG] [EKG]; C50.912 Malignant neoplasm of unspecified site of left female breast; J45.909 Unspecified asthma, uncomplicated; D64.81 Anemia due to antineoplastic chemotherapy

== ENCOUNTER 2024-09-04 07:14 | Inpatient (IN) ==
--- NOTE | 2024-09-04 07:24 | Emergency Department Note ---
Impression & Plan Idiopathic urticaria, Chest pain, Bilateral edema of lower extremity, Exertional shortness of breath ED Provider Note CHIEF COMPLAINT: Chest pain, lower extremity edema HISTORY OF PRESENTING ILLNESS: The patient is a pleasant 53-year-old female who arrives to the emergency department for evaluation of lower extremity edema, diffuse persistent rash, as well as chest pain and shortness of breath. Patient does have a history of breast CA, currently in remission. She reports she has been seen by her primary care provider for the persistent rash, and provided 1 rounds of steroids with no relief. She states yesterday she noted swelling in her lower legs, which has since extended to above her knees. She reports pain in her ankles, and difficulty with ambulation due to pain, and exertional shortness of breath. She reports she has been having intermittent central chest pain, with no radiation. She reports no previous cardiac history. REVIEW OF SYSTEMS: See HPI for pertinent positives and pertinent negatives. ALLERGIES: See below MEDICATIONS: See below PAST MEDICAL HISTORY: See below PHYSICAL EXAM: VITALS: Vitals are noted on the nurse's note and reviewed by myself. Vital signs stable. GENERAL: 53-year-old female, in no acute distress, nondiaphoretic, well- developed well-nourished. SKIN: Edema, BLE extending to above the bilateral knees. Erythema noted to the bilateral ankles. Diffuse well-demarcated urticarial rash noted. HEAD: Normocephalic atraumatic. EYES: Pupils equal round and reactive to light and accommodation. Conjunctivae without injection, sclerae without icterus. Extraocular movements intact. HEART: Tachycardia with rhythm without murmurs gallops or rubs. LUNGS: Clear to auscultation bilaterally without wheezes, rales or rhonchi. No retractions or accessory muscle use. ABDOMEN: Positive bowel sounds x 4. Soft, nontender, without masses or organomegaly. Petty sign negative. No guarding or rebound tenderness. MUSCULOSKELETAL: BLE, pitting 2+ edema, extending above the bilateral knees. Full ROM, ankles, knees. DP pulse intact bilaterally. Sensation intact to dull and sharp. Strength 5/5. NEURO: Patient was alert and oriented to person place and time. No focal neurological deficits. DIFFERENTIAL DIAGNOSIS: Cardiac ischemia, aortic dissection, pulmonary embolism, pneumothorax, pneumonia, pericarditis, myocarditis, esophageal rupture, GERD, cholecystitis, pancreatitis, musculoskeletal, tickborne, sepsis, arthritis, gout, as well as other pathologies. ED COURSE AND MEDICAL DECISION MAKING: MEDICATIONS GIVEN: Meclizine 25 mg p.o. MONITOR: Continuous cook pickled meat: Order was placed for continuous cook pickled meat. Patient was placed on the cook pickled meat and continuous pulse ox. Patient was noted to be in normal sinus rhythm at an initial rate of 93 bpm per my interpretation. EKG: EKG was interpreted by myself as NSR at a rate of 96 bpm, no ST elevation, or depression. Previous for comparison from September 2018 shows no significant change found. INTERPRETATION OF LABS: I interpreted the labs with full lab results as below in the lab section of this note. Pertinent lab results discussed in the MDM section below. INTERPRETATION OF IMAGING: Imaging studies were interpreted by myself and read by radiology as per the imaging section of this note. CHRONIC MEDICAL/SOCIAL CONDITIONS AFFECTING CARE: History of breast cancer MDM SUMMARY: The patient is a pleasant, 53-year-old female who arrives to the emergency department for evaluation of the above-stated complaint. A saline lock was established, CBC, CMP, troponin, Lyme, BNP, procalcitonin, uric acid, tryptase, ESR, CRP, uric acid were obtained. Lab work shows no leukocytosis, no anemia. CMP unremarkable. Troponin negative, Lyme negative, BNP 18, procalcitonin 0.02. Uric acid negative. ESR 22, CRP 2.11, tryptase not available while patient in the department. EKG interpreted as above. Urinalysis obtained which shows 2+ blood, trace ketones, no concerning signs of infection. Chest x-ray per my interpretation shows cardiomegaly, with mild congestive changes, however no sign of pneumonia. CT imaging of the chest for pulmonary embolism was obtained as the patient is high risk due to history of previous breast CA. Concern for pulmonary embolus due to patient's dyspnea on exertion, and tachycardia. CT imaging shows no evidence of pulmonary emboli although motion artifact was noted giving suboptimal evaluation per radiology report. There is also findings of mild cardiomegaly which was noted on chest x- ray imaging as well. Bilateral lower extremity ultrasound imaging was obtained to rule out thrombus, which is negative for DVT. I do believe the patient requires admission for further workup. I spoke with Dr. Nguyễn, from the [facility] hospitalist group, who recommended CT imaging of the abdomen and pelvis with IV contrast with runoff to the lower extremities for further eval, however the patient already had CT contrast today and this would need to be performed tomorrow. The patient will be admitted to the hospital during this time. Dr. Nguyễn did add further lab values for evaluation. Please refer to his documentation for further patient workup and care. DIAGNOSIS: Urticaria, bilateral lower extremity edema, chest pain, exertional shortness of breath The chart was completed utilizing [employer] voice recognition software. Grammatical errors, random word insertions, pronoun errors, and incomplete sentences are an occasional consequence of this system due to software limitations, ambient noise, and hardware issues. Any formal questions or concerns about the content, text, or information contained within the body of this dictation should be directly addressed to the provider for clarification. TREAT[facility] Med/Surg History Problem List (Updated 09/04/24 @ 16:15 by NIKKO Duff) Exertional shortness of breath (Acute) Bilateral edema of lower extremity (Acute) Chest pain (Acute) Idiopathic urticaria (Acute) B12 deficiency Anxiety and depression Dyslipidemia Metabolic syndrome History of breast cancer Osteopenia Obesity Urinary incontinence Vitamin D deficiency Scoliosis (01/21/13) Asthma Migraine (Acute) Medical History Severe dysplasia of cervix Ovarian cystic mass Endometriosis Closed fracture of cervical spine (01/21/13) Surgical History S/P cholecystectomy S/P tonsillectomy S/P total hysterectomy and bilateral salpingo-oophorectomy (2016) S/P breast reconstruction, bilateral (04/2020) S/P bilateral mastectomy (12/2018) Family History Father Polycystic kidney ESRD (end stage renal disease) Hypertension COPD (chronic obstructive pulmonary disease) Cerebral aneurysm Mother Hypertension Myocardial infarction Coronary heart disease Grandmother (Paternal) , age 80s Cancer Female cancer Denies family history of Ovarian cancer Prostate cancer Breast cancer Colorectal cancer Social History Smoking Status: Never smoker Do You Dip or Chew Tobacco: No; Hx Alcohol Use: No Hx Substance Use: No Preferred Language: Kyrgyz Communication Ability: Effective Visual Impairment: No Limitations Hearing Ability: Normal Research Computing Specialist Required: No Beliefs That Will Affect Care: None marital status: Current Living Situation: Alone current occupational status: employed current occupation: employed at [employer] How many Children do You have: 2 How many Children do You have Comment: 2 daughters Feels Safe at Home: Yes Safety Concerns: Feels Safe At This Time Childhood Exposure to Second-Hand Smoke: Yes Diet: regular Diet Comment: regular caffeine: Yes during the past year weight has: increased > 10 lbs Dental Care, Regularly: No Physical Activity Frequency: 1-2 Times per Week Seatbelt Use: always Sunscreen Use: Yes Assistive Devices: Glasses Allergies Allergies Allergy/AdvReac Type Severity Reaction Status Date / Time doxycycline Allergy Intermediate Hives Verified 09/02/24 12:02 fentanyl AdvReac Mild Itchiness-n Verified 09/02/24 12:02 ose hydromorphone AdvReac Mild Itchiness-n Verified 09/02/24 12:02 ose Home Meds Home Medications Medication Instructions Recorded Confirmed ibuprofen 800 mg tablet 800 mg PO Q8H PRN Pain 05/25/18 09/04/24 [id number] 250 1 tab PO Q6H PRN Migraine Headache 01/19/22 09/04/24 mg-250 mg-65 mg tablet (Excedrin Migraine) methylprednisolone 4 mg tablets in 4 mg PO UD 09/04/24 09/04/24 a dose pack Previous Rx's Medication Instructions Recorded albuterol sulfate 90 mcg/actuation 1 puff inhalation Q4H PRN 12/26/23 aerosol inhaler Shortness Of Breath Or Wheezing #8.5 grams ondansetron 8 mg disintegrating 8 mg PO TID PRN nausea and 12/26/23 tablet vomiting #30 tabs rizatriptan 10 mg tablet 10 mg PO DIRECTED PRN Migraine 03/30/24 Headache #27 tabs lorazepam 1 mg tablet 1 mg PO QPM PRN Anxiety #30 tabs 06/02/24 betamethasone valerate 0.1 % 1 applic topical BID PRN skin 08/19/24 topical cream irritation #45 grams hydroxyzine HCl 10 mg tablet 10 mg PO TID PRN anxiety #30 tabs 08/19/24 phentermine 15 mg capsule 15 mg PO DAILY #30 caps 09/02/24 topiramate 25 mg tablet 25 mg PO HS #30 tabs 09/02/24 Results & Data (ED) Vital Signs Vital Signs - 24 hr 09/04/24 07:15 09/04/24 07:17 09/04/24 07:17 Temperature 36.6 C Temperature Source Temporal Artery Scan Pulse Rate 93 H Pulse Rate [Right Brachial] Pulse Rhythm [Right Brachial] Pulse Strength [Right Brachial] Respiratory Rate 20 Respiratory Effort / Characteristics Non-Labored Spontaneous Respiratory Depth Normal Respiratory Pattern Regular Blood Pressure 127/84 Blood Pressure [Right Arm] Blood Pressure Mean 98 Blood Pressure Mean [Right Arm] Blood Pressure Position Sitting Blood Pressure Position [Right Arm] Pulse Oximetry 96 98 Oxygen Delivery Method Room Air Room Air Room Air Sepsis Recent Fever Within 48 Hours No Sepsis New/Unexplained Change in Mental Status N/A Sepsis Action Taken by Nursing No Action Required 09/04/24 07:53 09/04/24 09:15 09/04/24 11:00 Temperature Temperature Source Pulse Rate 102 H Pulse Rate [Right Brachial] 79 77 Pulse Rhythm [Right Brachial] Regular Pulse Strength [Right Brachial] Normal Respiratory Rate 18 16 Respiratory Effort / Characteristics Non-Labored Non-Labored Spontaneous Respiratory Depth Normal Normal Respiratory Pattern Regular Blood Pressure Blood Pressure [Right Arm] 130/80 135/75 Blood Pressure Mean Blood Pressure Mean [Right Arm] 96 95 Blood Pressure Position Blood Pressure Position [Right Arm] Lying Lying Pulse Oximetry 98 100 Oxygen Delivery Method Room Air Room Air Sepsis Recent Fever Within 48 Hours Sepsis New/Unexplained Change in Mental Status Sepsis Action Taken by Nursing 09/04/24 11:21 Temperature Temperature Source Pulse Rate 77 Pulse Rate [Right Brachial] Pulse Rhythm [Right Brachial] Pulse Strength [Right Brachial] Respiratory Rate Respiratory Effort / Characteristics Respiratory Depth Respiratory Pattern Blood Pressure Blood Pressure [Right Arm] Blood Pressure Mean Blood Pressure Mean [Right Arm] Blood Pressure Position Blood Pressure Position [Right Arm] Pulse Oximetry Oxygen Delivery Method Sepsis Recent Fever Within 48 Hours Sepsis New/Unexplained Change in Mental Status Sepsis Action Taken by Care Home Medications Current Medication List: was personally reviewed by me Laboratory Data Attestation: I reviewed the patient's lab results. 09/04/24 07:35 09/04/24 07:35 Lab Results 09/04/24 09/04/24 09/04/24 Range/Units 07:35 07:35 10:14 WBC 7.93 (4.8-10.8) K/ul RBC 4.37 (4.20-5.40) M/uL Hgb 12.8 (12.0-16.0) g/dl Hct 38.6 (37.0-47.0) % MCV 88.3 (80.0-100.0) fL MCH 29.3 (25.0-34.0) pg MCHC 33.2 (32.0-36.0) g/dL RDW Std Deviation 42.5 (36.4-46.3) fL RDW Coeff of Ayo 13.2 (11.5-14.5) % Plt Count 322 (130-400) K/uL MPV 8.2 L (9.4-12.4) fL Immature Gran % (Auto) 0.8 % Neut % (Auto) 56.2 % Lymph % (Auto) 33.3 % Hartley % (Auto) 7.1 % Eos % (Auto) 2.5 % Baso % (Auto) 0.1 % Neut # (Auto) 4.46 (1.40-6.50) K/uL Lymph # (Auto) 2.64 (1.20-3.40) K/uL Hartley # (Auto) 0.56 (0.11-0.59) K/uL Eos # (Auto) 0.20 (0.00-0.50) K/uL Baso # (Auto) 0.01 (0.00-0.20) K/uL Immature Gran # (Auto) 0.06 (0.01-0.20) K/uL ESR 22 (0-30) mm/hr Sodium 139 (136-145) mmol/L Potassium 3.8 (3.5-5.1) mmol/L Chloride 107 (98-107) mmol/L Carbon Dioxide 28 (21-32) mmol/L Anion Gap 4 (3-11) BUN 16 (6-23) mg/dl Creatinine 0.88 (0.6-1.2) mg/dl Est Cr Clr Drug Dosing 80.3 ml/min eGFR 78.53 BUN/Creatinine Ratio 18.2 (10-20) Glucose 144 H (70-99(Fasting)) mg/dl Uric Acid 5.5 (2.6-7.2) mg/dl Calcium 8.9 (8.6-10.3) mg/dl Total Bilirubin 0.4 (0.2-1.0) mg/dl AST 15 (13-39) U/L ALT 13 (7-52) U/L Alkaline Phosphatase 90 (34-104) U/L Troponin I High Sens 2.7 (0-14) pg/ml C-Reactive Protein 2.11 H (0-0.5) mg/dl B-Natriuretic Peptide 18 (0-100) pg/ml Total Protein 7.0 (6.0-8.3) gm/dl Albumin 4.1 (3.4-5.0) gm/dl Globulin 2.9 (2.5-4.0) gm/dl Albumin/Globulin Ratio 1.4 (0.9-2) Procalcitonin 0.02 Cancelled (0-0.5) ng/ml Urine Color Yellow Urine Appearance Clear (Clear) Urine pH 5.5 (4.5-7.5) Ur Specific [place] 1.024 (1.000-1.030) Urine Protein Negative (Negative) Urine Glucose (UA) Negative (Negative) Urine Ketones Trace H (Negative) Urine Blood 2+ H (Negative) Urine Nitrite Negative (Negative) Urine Bilirubin Negative (Negative) Urine Urobilinogen Negative (Negative) Ur Leukocyte Esterase Negative (Negative) Urine WBC (Auto) 0-5 (0-5) /hpf Urine RBC (Auto) 11-20 H (0-2) /hpf U Hyaline Cast (Auto) 0-2 (0-2) /lpf U Epithel Cells (Auto) 6-10 H (0-2) /hpf Urine Bacteria (Auto) None Seen (None Seen) Lyme Disease Screen Negative (Negative) Administered Medications Enoxaparin Sodium (Enoxaparin Inj 40 Mg/0.4 Ml Syr) 40 mg SQ Q24H MICKEY Stop: 10/04/24 15:24 Last Admin: 09/04/24 16:05 Dose: 40 mg Documented By: CSC Hydroxyzine HCl (Hydroxyzine Hcl 25 Mg Tab) 25 mg PO HS MICKEY Stop: 10/04/24 20:59 Last Admin: 09/04/24 16:04 Dose: 25 mg Documented By: BANDAR Montelukast Sodium (Montelukast Sodium 10 Mg Tablet) 10 mg PO HS MICKEY Stop: 10/04/24 10:24 Last Admin: 09/04/24 12:16 Dose: 10 mg Documented By: GASTON Discontinued Medications Famotidine (Famotidine 20 Mg Tab) 20 mg PO ONE ONE Stop: 09/04/24 12:01 Last Admin: 09/04/24 12:17 Dose: 20 mg Documented By: GASTON Ioversol (Optiray 320 125ml) 120 ml IV ONCE ONE Stop: 09/04/24 08:32 Last Admin: 09/04/24 08:31 Dose: 120 ml Documented By: CÉSAR Meclizine HCl (Meclizine Hcl 25 Mg Tab) 25 mg PO NOW STA Stop: 09/04/24 09:32 Last Admin: 09/04/24 10:15 Dose: 25 mg Documented By: RINA Imaging Data Attestation: I personally reviewed and interpreted this imaging study as follows: Radiologist's Impression: Chest X-Ray 09/04/24 07:17 EXAM: XR chest 1V portable CLINICAL HISTORY: Chest pain, nonspecific. TECHNIQUE: An X-ray image of the chest is obtained in AP projection. COMPARISON: 10/02/2018. FINDINGS: . An indeterminate tube is seen along the right lateral chest wall. Please correlate with the history. Pulmonary Parenchyma: Bilateral prominent bronchovascular markings. No evidence of consolidation, collapse, or focal opacities. No pulmonary nodules are identified. No evidence of pleural effusion or pleural thickening. [Slight opacification of left lower zone is possibly due to the overlying breast shadow. Heart and Mediastinum: Heart size and shape are normal. No mediastinal widening or masses. No hilar or mediastinal lymphadenopathy. Bony Thorax: Bony thorax appears intact without fractures or deformities. Soft Tissues: Soft tissues overlying the chest wall are unremarkable. IMPRESSION: 1. No evidence of acute cardiopulmonary abnormality. 2. Bilateral prominent bronchovascular markings. mild congestive changes, interval new. 3. Cardiomegaly. 4. Previously noted central line is not visible in the current radiograph. 5. An indeterminate tube is seen along the right lateral chest wall. Please correlate with the history. Electronically signed by Nate Melvin 09-04-2024 08:20 AM Venous Doppler Study 09/04/24 07:32 BILATERAL LOWER EXTREMITY VENOUS DOPPLER CLINICAL HISTORY: Bilateral lower extremity edema. COMPARISON STUDY: No previous studies for comparison. TECHNIQUE: Sonography of the deep venous system of the bilateral lower extremities was performed. Compression and augmentation were evaluated. FINDINGS: The bilateral common femoral, superficial femoral and popliteal veins were compressible. Augmentation was normal. Flow was shown within the deep calf vessels. Prominent right groin lymph nodes have benign imaging characteristics. IMPRESSION: No evidence of deep venous thrombus within the bilateral lower extremities. ACT 112: Negative or not required by law. Electronically signed by: Patrick Jiang M.D. 09/04/2024 10:14 AM Chest CTA 09/04/24 07:33 CT ANGIOGRAM OF THE CHEST CLINICAL HISTORY: Chest pain and shortness of breath. Evaluate for pulmonary embolus. COMPARISON STUDY: Chest CT October 02, 2018. Chest radiograph performed earlier today. TECHNIQUE: Following the IV administration of 120 cc of Optiray 320, CT angiogram of the chest was performed from the upper abdomen to the thoracic inlet utilizing the pulmonary embolus protocol. Images are reviewed in the axial, sagittal, and coronal planes. 3-D MIPS images are created and assessed. IV contrast was administered without complication. A dose lowering technique was utilized adhering to the principles of ALARA. CT DOSE: 727.53 mGy.cm FINDINGS: Thyroid: Unremarkable. Thoracic aorta: The caliber of the thoracic aorta is normal. No dissection is seen. Pulmonary vasculature: The caliber of the pulmonary trunk is normal. There are no filling defects identified in main, lobar, or segmental pulmonary branches to suggest pulmonary embolus. Subsegmental pulmonary arteries are suboptimally assessed due to respiratory motion artifact. Heart: The heart is mildly enlarged. There is no pericardial effusion. Lungs and pleural spaces: The lungs and pleural spaces are clear. Mediastinum: There is no mediastinal lymphadenopathy. Anali: There is no hilar adenopathy. Axillae: There is no axillary lymphadenopathy. Chest wall: Status post bilateral mastectomy with reconstruction. Upper abdomen: Several hepatic cysts are again noted. Skeletal structures: No lytic or blastic bony lesions are seen. IMPRESSION: 1. No pulmonary emboli identified although subsegmental pulmonary arteries suboptimally assessed due to motion artifact. 2. Mild cardiomegaly. 3. No acute intrathoracic findings. ACT 112: Negative or not required by law. Electronically signed by: Patrick Jiang M.D. 09/04/2024 8:52 AM Discharge Plan Visit Data Chief Complaint: Cardiac Assessment Stated Complaint: SOB,CHEST PAIN,LEGS SWOLLEN,RASH ED Provider: Kj Davis ED Midlevel Provider: Rossy Braun Discharge Problem: Idiopathic urticaria, Chest pain, Bilateral edema of lower extremity, Exertional shortness of breath Patient Disposition: Admitted As Inpatient Condition: Fair Discharge Instructions Interventions: ED Discharge Assessment Last Done: 09/04/24 14:59
[2024-09-04 07:56] LABS: Basophils # (auto) 0.01 K/uL (0.00-0.20); Basophils % (auto) 0.1 %; Eosinophils % (auto) 2.5 %; Hematocrit (blood only) 38.6 % (37.0-47.0); Hemoglobin 12.8 g/dl (12.0-16.0); Immature Granulocytes # (auto) 0.06 K/uL (0.01-0.20); Immature Granulocytes % (auto) 0.8 %; Lymphocytes # (auto) 2.64 K/uL (1.20-3.40); Lymphocytes % (auto) 33.3 %; Mean Corpuscular Hemoglobin 29.3 pg (25.0-34.0); Mean Corpuscular Hgb Conc 33.2 g/dL (32.0-36.0); Mean Corpuscular Volume 88.3 fL (80.0-100.0); Mean Platelet Volume 8.2 fL (9.4-12.4); Monocytes # (auto) 0.56 K/uL (0.11-0.59); Monocytes % (auto) 7.1 %; Neutrophils # (auto) 4.46 K/uL (1.40-6.50); Neutrophils % (auto) 56.2 %; Platelet Count 322 K/uL (130-400); RDW Coefficient of Variation 13.2 % (11.5-14.5); RDW Standard Deviation 42.5 fL (36.4-46.3); Red Blood Count 4.37 M/uL (4.20-5.40); White Blood Count 7.93 K/ul (4.8-10.8)
[2024-09-04 08:16] LABS: Albumin Globulin Ratio 1.4 (0.9-2); Albumin Level 4.1 gm/dl (3.4-5.0); BUN Creatinine Ratio 18.2 (10-20); Bilirubin,Total 0.4 mg/dl (0.2-1.0); C Reactive Protein 2.11 mg/dl (0-0.5); Calcium 8.9 mg/dl (8.6-10.3); Creatinine Clr Calc Pharmacy 80.3 ml/min; Globulin 2.9 gm/dl (2.5-4.0); Potassium 3.8 mmol/L (3.5-5.1); Uric Acid 5.5 mg/dl (2.6-7.2)
--- NOTE | 2024-09-04 08:21 | XRay Report ---
EXAM: XR chest 1V portable CLINICAL HISTORY: Chest pain, nonspecific. TECHNIQUE: An X-ray image of the chest is obtained in AP projection. COMPARISON: 10/02/2018. FINDINGS: . An indeterminate tube is seen along the right lateral chest wall. Please correlate with the history. Pulmonary Parenchyma: Bilateral prominent bronchovascular markings. No evidence of consolidation, collapse, or focal opacities. No pulmonary nodules are identified. No evidence of pleural effusion or pleural thickening. [Slight opacification of left lower zone is possibly due to the overlying breast shadow. Heart and Mediastinum: Heart size and shape are normal. No mediastinal widening or masses. No hilar or mediastinal lymphadenopathy. Bony Thorax: Bony thorax appears intact without fractures or deformities. Soft Tissues: Soft tissues overlying the chest wall are unremarkable. IMPRESSION: 1. No evidence of acute cardiopulmonary abnormality. 2. Bilateral prominent bronchovascular markings. mild congestive changes, interval new. 3. Cardiomegaly. 4. Previously noted central line is not visible in the current radiograph. 5. An indeterminate tube is seen along the right lateral chest wall. Please correlate with the history. Electronically signed by Nate Melvin 09-04-2024 08:20 AM
[2024-09-04 08:23] LABS: Troponin I High Sensitivity 2.7 pg/ml (0-14)
[2024-09-04] MEDS: OPTIRAY 320 125ml IV ONE (08:31)
--- NOTE | 2024-09-04 08:55 | CT Scan Report ---
CT ANGIOGRAM OF THE CHEST CLINICAL HISTORY: Chest pain and shortness of breath. Evaluate for pulmonary embolus. COMPARISON STUDY: Chest CT October 02, 2018. Chest radiograph performed earlier today. TECHNIQUE: Following the IV administration of 120 cc of Optiray 320, CT angiogram of the chest was pe rformed from the upper abdomen to the thoracic inlet utilizing the pulmonary embolus protocol. Images are reviewed in the axial, sagittal, and coronal planes. 3-D MIPS images are created and assessed. I V contrast was administered without complication. A dose lowering technique was utilized adhering to the principles of ALARA. CT DOSE: 727.53 mGy.cm FINDINGS: Thyroid: Unremarkable. Thoracic aorta: The caliber of the thoracic aorta is normal. No dissection is seen. Pulmonary vasculature: The caliber of the pulmonary trunk is normal. There are no filling defects kavon ntified in main, lobar, or segmental pulmonary branches to suggest pulmonary embolus. Subsegmental pu lmonary arteries are suboptimally assessed due to respiratory motion artifact. Heart: The heart is mildly enlarged. There is no pericardial effusion. Lungs and pleural spaces: The lungs and pleural spaces are clear. Mediastinum: There is no mediastinal lymphadenopathy. Anali: There is no hilar adenopathy. Axillae: There is no axillary lymphadenopathy. Chest wall: Status post bilateral mastectomy with reconstruction. Upper abdomen: Several hepatic cysts are again noted. Skeletal structures: No lytic or blastic bony lesions are seen. IMPRESSION: 1. No pulmonary emboli identified although subsegmental pulmonary arteries suboptimally assessed due to motion artifact. 2. Mild cardiomegaly. 3. No acute intrathoracic findings. ACT 112: Negative or not required by law. Electronically signed by: Patrick Jiang M.D. 09/04/2024 8:52 AM
[2024-09-04 09:18] LABS: Procalcitonin 0.02 ng/ml (0-0.5)
[2024-09-04 09:26] LABS: Lyme Screen Rflx Confirmation Negative (Negative)
--- NOTE | 2024-09-04 10:10 | History & Physical Report ---
Date of Service September 04, 2024 Assessment & Plan (1) Idiopathic urticaria: Plan: 53-year-old female with a past medical history of breast cancer s/p chemo and bilateral mastectomy, idiopathic urticaria, and asthma who presents with chest pain and itchy rash on her back/legs intermittently. She has also noticed bilateral lower extremity swelling with increased pain and difficulty bearing weight due to knee and ankle pain without trauma. Pruritic macular rash, dermatographia, history of both drug-induced and idiopathic urticaria Has not been using any new shampoos soaps or detergents. Has been monitoring these closely 2/2 discussion of PCP but has not identified any clear triggers Denies any recent medication changes. Has been prescribed phentermine and Topamax for weight however has not yet started these. Has been under a great deal of stress Prior hive reaction with doxycycline. Did have large hives/swelling on the back of her legs after taking this. This is a different quality than her itchy rash present on admission Rash is a macular patchy red rash without scale over the lower back, lateral thighs bilaterally, and lateral foot bilaterally. She reports that this moves and will sometimes wrap around to her abdomen or spread up and down the leg periodically. Pruritic. No scale. 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 If she is not working she takes a 25 mg Benadryl in the evening in addition to this. Does not seem to have helped her symptoms or rash from recurring. Was prescribed a methylprednisolone Dosepak, thinks that prior prednisone may have helped a little bit but noted it was very hard on her stomach and has not tried the methylprednisolone that was prescribed Has a family history of psoriatic arthritis no personal history of this. She has not had any extensor surface scaling. She has not been tested for rheu matoid diseases before. CRP is elevated, ESR is normal. ESR/RF are pending Does have history of breast cancer. Has significant bilateral lower extremity soft tissue swelling with a negative DVT. CTabdomen/pelvis with runoff to the lower extremities is pending to evaluate for potential obstruction/malignancy however this is not anticipated be performed until 09/05 as she has already received IV contrast day of admission. She does not show any evidence of critical perfusion deficits in the lower extremity necessitating double contrast load 09/04. No evidence of recurrent or metastatic breast cancer/neoplastic allergic trigger Continue the following allergy meds on admission: Hydroxyzine 25 mg at bedtime. May use a.m./noon doses as well as needed for either itching or anxiety Cetirizine 10 mg daily. Nevaeh deferred while on cetirizine - Pepcid 20mg BID Montelukast 10 mg daily added 2/2 dermatographia Benadryl 50 mg every 6 hours IV, methylprednisolone 125 mg IV as needed for any evidence of severe allergic reaction. Epinephrine IM 0.3 mg on-call if needed for evidence of anaphylaxis, fortunately she has not had any evidence of lip/tongue swelling or anaphylaxis thus far B/L Lower extremity swelling DVT negative Minimal pitting edema bilateral, soft tissue swelling diffusely CTA/P with runoff to the lower extremities bilaterally to look for malignancy/obstructive causes pending 09/05 PT/DP pulses are intact bilaterally. Cap refill is less than 2 seconds bilaterally. Sensation and strength is intact Grief reaction/depression/anxiety Patient reports she has had the passing of both her boyfriend and her mother recently has been under a great deal of stress. Noticed her leg swelling started after this No significant extremity or pulmonary edema, troponin is normal. 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 Mild cardiomegaly. No intrathoracic acute findings. CXR: Prominent vascular markings, mild congestive change. Right lateral chest wall indeterminate tube. DVT prophylaxis: Lovenox Disposition: MSO Diet: Regular CODE STATUS: Full code (2) Anxiety and depression: (3) History of breast cancer: (4) Chest pain: History of Present Illness Primary Care Provider: NIKKO Garner is a 53-year-old female with a past medical history of cancer in remission, anxiety/depression, hyperlipidemia, metabolic syndrome, asthma, migraine, idiopathic urticaria who presented to the ER with chest pain, chest pressure, diffuse rash, and lower extremity edema. He also had swelling in her lower legs with difficulty ambulating due to pain per ER review. She was last seen by her PCP 07/21/2024 for her chest congestion and cough. Last outpatient visit was with bariatrics 09/02/2024 for metabolic syndrome. At that time she was restarted on phentermine 15 mg daily and Topamax 25 mg daily at bedtime, she reports she has not actually started this yet Itching/allergy symptoms started over marshall's day when she took a trip to [place] and got a sinus infection. Since then progressively worse. About a month ago, took 2-3 days of prednisone after reaction to doxycyline, but the prednisone made her sick and stopped. 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 On night she does not work she takes benadryl. No leukocytosis Hemoglobin normal BMP without acute electrolyte abnormalities. Creatinine 0.88 and at baseline. BSG 144. No transaminitis CRP elevated at 2.11. BNP is normal, high-sensitivity troponin is normal. Tryptase is pending. Lyme screen is pending. EKG: Normal sinus rhythm. QTc 467. No territorial ST/T wave changes. No signs of ischemia. Last echo 01/16/2023: EF 65 to 70%. Normal LV SF with no regional wall motion abnormalities. Longitudinal strain of the left ventricle normal. Diffuse intensely itchy patchy macular rash most prominent on her back and legs. Will wrap around her chest is intermittent. Is taking nondrowsy antihistamines, Benadryl, and hydroxyzine without improvement. Was on a course of prednisone previously but this gave her upset stomach. Also has knee pain and lower extremity swelling bilaterally. At bedside does display dermatographia. Multiple erythematous itchy macules are present at the lateral ankles, anterior and lateral thighs, and bilateral lower back. No scaling. No palpable nodules. She reports she also developed chest pain in a band across the front of her chest. She notes she has been under a great deal of stress with the passing of both her boyfriend and a family member recently and has a tearful affect on admission. Was on venlafaxine previously but this was stopped several months ago. Was restarted but due to concerns for allergy was discontinued and she has not taken this since. Does take Ativan 1 mg in the evenings. Notices her legs are swollen bilaterally the point where it was noticeable th rough her scrubs at the end of her shift. No prior history of the DVT/PE. Also has knee pain worsened on weightbearing and on palpation at the lateral aspect of both knees. No fevers chills or sweats. No shortness of breath at time of admission. Has been taking multiple antihistamines as noted above. Does have a history of breast cancer s/p bilateral mastectomy with no known recurrence/malig musa. No tobacco use No alcohol use Did have a hive allergy to doxycycline was prescribed for URI symptoms in the past Stomach upset due to steroids Full code Allergies Allergy/AdvReac Type Severity Reaction Status Date / Time doxycycline Allergy Intermediate Hives Verified 09/02/24 12:02 fentanyl AdvReac Mild Itchiness-n Verified 09/02/24 12:02 ose hydromorphone AdvReac Mild Itchiness-n Verified 09/02/24 12:02 ose Home Medications Medication Instructions Recorded Confirmed Type ibuprofen 800 mg tablet 800 mg PO Q8H PRN Pain 05/25/18 09/04/24 History mzhxfwr-jcgmeskytnhpk-lajitcfs 250 1 tab PO Q6H PRN Migraine Headache 01/19/22 09/04/24 History mg-250 mg-65 mg tablet (Excedrin Migraine) albuterol sulfate 90 mcg/actuation 1 puff inhalation Q4H PRN 12/26/23 09/04/24 Rx aerosol inhaler Shortness Of Breath Or Wheezing #8.5 grams ondansetron 8 mg disintegrating 8 mg PO TID PRN nausea and 12/26/23 09/04/24 Rx tablet vomiting #30 tabs rizatriptan 10 mg tablet 10 mg PO DIRECTED PRN Migraine 03/30/24 09/04/24 Rx Headache #27 tabs lorazepam 1 mg tablet 1 mg PO QPM PRN Anxiety #30 tabs 06/02/24 09/04/24 Rx betamethasone valerate 0.1 % 1 applic topical BID PRN skin 08/19/24 09/04/24 Rx topical cream irritation #45 grams hydroxyzine HCl 10 mg tablet 10 mg PO TID PRN anxiety #30 tabs 08/19/24 09/04/24 Rx phentermine 15 mg capsule 15 mg PO DAILY #30 caps 09/02/24 09/04/24 Rx topiramate 25 mg tablet 25 mg PO HS #30 tabs 09/02/24 09/04/24 Rx methylprednisolone 4 mg tablets in 4 mg PO UD 09/04/24 09/04/24 History a dose pack Past Med/Surg History Problem List Idiopathic urticaria B12 deficiency Anxiety and depression Dyslipidemia Metabolic syndrome History of breast cancer Osteopenia Obesity Urinary incontinence Vitamin D deficiency Scoliosis (01/21/13) Asthma Migraine (Acute) Medical History Severe dysplasia of cervix Ovarian cystic mass Endometriosis Closed fracture of cervical spine (01/21/13) Surgical History S/P cholecystectomy S/P tonsillectomy S/P total hysterectomy and bilateral salpingo-oophorectomy (2016) S/P breast reconstruction, bilateral (04/2020) S/P bilateral mastectomy (12/2018) Family History Father Polycystic kidney ESRD (end stage renal disease) Hypertension COPD (chronic obstructive pulmonary disease) Cerebral aneurysm Mother Hypertension Myocardial infarction Coronary heart disease Grandmother (Paternal) , age 80s Cancer Female cancer Denies family history of Ovarian cancer Prostate cancer Breast cancer Colorectal cancer Social History Smoking Status: Never smoker Do You Dip or Chew Tobacco: No; Hx Alcohol Use: Yes Alcohol Intake Frequency: Monthly or Less Hx Substance Use: No Preferred Language: Macedonian Communication Ability: Effective Visual Impairment: No Limitations Hearing Ability: Normal Cardiovascular Technologist Required: No Beliefs That Will Affect Care: None marital status: Current Living Situation: Spouse current occupational status: employed current occupation: employed at [employer] How many Children do You have: 2 How many Children do You have Comment: 2 daughters Feels Safe at Home: Yes Childhood Exposure to Second-Hand Smoke: Yes Diet: regular Diet Comment: regular caffeine: Yes during the past year weight has: increased > 10 lbs Dental Care, Regularly: No Physical Activity Frequency: 1-2 Times per Week Seatbelt Use: always Sunscreen Use: Yes Assistive Devices: Glasses Physical Exam Physical Exam: General: A&Ox3. NAD. Cooperative. Tearful affect when discussing the passing of her boyfriend Skin: Lower back with patchy erythematous rash without scale, pruritic. Small pruritic macules also present on the bilateral lateral and anterior thighs and lateral foot/ankle. No papules/nodular character appreciated. No rash overlying the abdomen or neck at time of assessment although patient does have pictures of similar rash on her right neck from prior episodes. HEENT: Atraumatic, normocephalic. Vision and hearing grossly intact Pulm: CTAB A&P. -wheezes, -rales, -rhonchi. Symmetrical chest rise. No increased work of breathing. No respiratory distress. Cardiac: RRR, -mrg. Radial pulses intact and symmetrical. Abdominal: Nontender, nondistended, soft. BS present. Extremities: Bilateral lower extremity soft tissue swelling with scant ankle edema bilaterally is present. Passive hip flexion, knee flexion/extension, dxyrmq-ry-plpg testing all without pain however palpation of the lateral joint line bilaterally does induce tenderness at the knee. Hip flexion, knee flexion/extension, ankle dorsiflexion/plantarflexion is 5/5. No sensory deficit to soft touch in hands or feet. PT/DP pulses are intact. No cerulea dolens is not present at time of assessment. Results & Data Results & Data Vital Signs (Past 12 Hours) Vital Signs Temp Pulse Resp BP Pulse Ox O2 Del Method 09/04/24 07:53 102 H 09/04/24 07:17 98 Room Air 09/04/24 07:17 36.6 C 93 H 20 127/84 96 Room Air 09/04/24 07:15 Room Air PG Care Time/CCT Total # of Minutes Spent Total Time Spent with Patient: Total time spent is greater than 50% in coordination of care (as documented) at patient's floor/unit and/or counseling patient: Coding Level of Care Code 51800 INT INP/OBS CARE Diagnoses Idiopathic urticaria L50.1 Anxiety and depression F41.9; F32.A History of breast cancer Z85.3 Chest pain R07.9
[2024-09-04] MEDS: MECLIZINE HCL 25 MG TAB PO STA (10:15)
--- NOTE | 2024-09-04 10:15 | Ultrasound Report ---
BILATERAL LOWER EXTREMITY VENOUS DOPPLER CLINICAL HISTORY: Bilateral lower extremity edema. COMPARISON STUDY: No previous studies for comparison. TECHNIQUE: Sonography of the deep venous system of the bilateral lower extremities was performed. Co mpression and augmentation were evaluated. FINDINGS: The bilateral common femoral, superficial femoral and popliteal veins were compressible. A ugmentation was normal. Flow was shown within the deep calf vessels. Prominent right groin lymph node s have benign imaging characteristics. IMPRESSION: No evidence of deep venous thrombus within the bilateral lower extremities. ACT 112: Negative or not required by law. Electronically signed by: Patrick Jiang M.D. 09/04/2024 10:14 AM
[2024-09-04 11:13] LABS: Appearance Urine Clear (Clear); Bacteria Urine Automated None Seen (None Seen); Bilirubin Urine Negative (Negative); Blood Urine 2+ (Negative); Cast Urine Automated 0-2 /lpf (0-2); Color Urine Yellow; Glucose Urine UA Negative (Negative); Ketones Urine Trace (Negative); Leukocyte Esterase Urine Negative (Negative); Nitrite Urine Negative (Negative); Protein Urine Negative (Negative); Specific Gravity Urine 1.024 (1.000-1.030); Urobilinogen Urine Negative (Negative); WBC Urine Automated 0-5 /hpf (0-5); pH Urine 5.5 (4.5-7.5)
[2024-09-04] MEDS ORDERED: EPINEPHrine INJ 1 MG/ML AMP IM PRN (11:44)
[2024-09-04] MEDS ORDERED: LORazepam 1 MG TAB PO PRN ×2 (12:02→15:25)
[2024-09-04] MEDS: MONTELUKAST SODIUM 10 MG TABLET PO SCH (12:16)
[2024-09-04] MEDS: FAMOTIDINE 20 MG TAB PO ONE (12:17)
[2024-09-04] MEDS ORDERED: RIZATRIPTAN BENZOATE 10 MG TAB PO PRN (15:25)
[2024-09-04] MEDS ORDERED: ALBUTEROL HFA 8 GM INHALER INH PRN (15:25)
[2024-09-04] MEDS ORDERED: ACETAMINOPHEN 325 MG TAB PO PRN (15:25)
[2024-09-04] MEDS ORDERED: POLYETHYLENE (MIRALAX) 17 GM PACK PO PRN (15:25)
[2024-09-04] MEDS ORDERED: ONDANSETRON 8MG OD TAB PO PRN (15:25)
[2024-09-04] MEDS: hydrOXYzine HCl 25 MG TAB PO SCH (16:04)
[2024-09-04] MEDS: ENOXAPARIN INJ 40 MG/0.4 ML SYR SQ SCH (16:05)
--- NOTE | 2024-09-04 17:03 | XCELERA ---
[id number]
[2024-09-04] MEDS ORDERED: hydrOXYzine HCl 10 MG TAB PO SCH (21:00)
--- NOTE | 2024-09-04 21:43 | Electrocardiogram Report ---
Test Reason : Blood Pressure : */* mmHG Vent. Rate : 96 BPM Atrial Rate : 96 BPM P-R Int : 132 ms QRS Dur : 96 ms QT Int : 370 ms P-R-T Axes : 33 1 30 degrees QTcB Int : 467 ms Normal sinus rhythm Normal ECG When compared with ECG of 04-Oct-2018 06:56, No significant change was found Confirmed by Apolinar Betts ([id number]) on 09/04/2024 9:43:38 PM Referred By: REFERRED SELF Confirmed By: Apolinar Betts
[2024-09-04] MEDS: diphenhydrAMINE 50 MG/ML VIAL IV PRN (22:31)
[2024-09-04] MEDS: FAMOTIDINE 20 MG TAB PO SCH (22:31)
[2024-09-05 06:43] LABS: Basophils # (auto) 0.01 K/uL (0.00-0.20); Basophils % (auto) 0.2 %; Eosinophils # (auto) 0.09 K/uL (0.00-0.50); Eosinophils % (auto) 1.4 %; Hematocrit (blood only) 36.8 % (37.0-47.0); Hemoglobin 11.9 g/dl (12.0-16.0); Immature Granulocytes # (auto) 0.03 K/uL (0.01-0.20); Immature Granulocytes % (auto) 0.5 %; Lymphocytes # (auto) 2.49 K/uL (1.20-3.40); Mean Corpuscular Hemoglobin 28.5 pg (25.0-34.0); Mean Corpuscular Hgb Conc 32.3 g/dL (32.0-36.0); Mean Corpuscular Volume 88.2 fL (80.0-100.0); Monocytes # (auto) 0.54 K/uL (0.11-0.59); Monocytes % (auto) 8.5 %; Neutrophils # (auto) 3.23 K/uL (1.40-6.50); Neutrophils % (auto) 50.4 %; Platelet Count 285 K/uL (130-400); RDW Coefficient of Variation 13.2 % (11.5-14.5); RDW Standard Deviation 42.7 fL (36.4-46.3); Red Blood Count 4.17 M/uL (4.20-5.40); White Blood Count 6.39 K/ul (4.8-10.8)
[2024-09-05 06:59] LABS: C Reactive Protein 1.84 mg/dl (0-0.5); Calcium 8.9 mg/dl (8.6-10.3); Creatinine Clr Calc Pharmacy 75.2 ml/min; Potassium 4.1 mmol/L (3.5-5.1)
[2024-09-05] MEDS: hydrOXYzine HCl 10 MG TAB PO PRN (07:25)
[2024-09-05] MEDS: CETIRIZINE HCL 10 MG TABLET PO SCH (07:27)
[2024-09-05] MEDS: OPTIRAY 320 100ml IV ONE (08:55)
--- NOTE | 2024-09-05 09:16 | CT Scan Report ---
ABDOMEN AND PELVIS CT WITH IV CONTRAST CT DOSE: 1351.88 mGy.cm HISTORY: Breast cancer. r/o abdominal mets TECHNIQUE: Multiaxial CT images of the abdomen and pelvis were performed following the IV administrat ion of cc of Optiray, A dose lowering technique was utilized adhering to the principles of ALARA. COMPARISON STUDY: 07/10/[address] yesterday. FINDINGS: ABDOMEN: There are a few small cysts in the liver. Otherwise the liver, spleen, pancreas, and adrenal glands are unremarkable. Gallbladder is surgically absent. There are a few small cysts at the kidney s. There is no hydronephrosis bilaterally. No renal calculi. No abdominal aortic aneurysm. Pelvis: Uterus is absent. No adnexal mass. Urinary bladder is decompressed. There is mild sigmoid div erticulosis. No acute diverticulitis. There is moderate retained stool. No bowel inflammation or obst ruction. Normal appendix. No free fluid, free air, or abscess. No enlarged adenopathy. Osseous structures: No acute osseous findings. IMPRESSION: No acute findings. No evidence of metastatic disease seen. Otherwise as described. ACT 112: Negative or not required by law. The above report was generated using voice recognition software. It may contain grammatical, syntax o r spelling errors. Electronically signed by: Ayush Mcghee M.D. 09/05/2024 9:13 AM
[2024-09-05] MEDS ORDERED: methylPREDNISolone 125 MG/2 ML VIAL IV STA (10:17)
--- NOTE | 2024-09-05 11:15 | Hospitalist Progress Note ---
Date of Service September 05, 2024 Assessment & Plan (1) Idiopathic urticaria: Plan: 53-year-old female with a past medical history of breast cancer s/p chemo and bilateral mastectomy, idiopathic urticaria, and asthma who presents with chest pain and itchy rash on her back/legs intermittently. She has also noticed bilateral lower extremity swelling with increased pain and difficulty bearing weight due to knee and ankle pain without trauma. Pruritic macular rash, dermatographia, history of both drug-induced and idiopathic urticaria Has not been using any new shampoos soaps or detergents. Has been monitoring these closely 2/2 discussion of PCP but has not identified any clear triggers Denies any recent medication changes. Has been prescribed phentermine and Topamax for weight however has not yet started these. Has been under a great deal of stress Prior hive reaction with doxycycline. Did have large hives/swelling on the back of her legs after taking this. This is a different quality than her itchy rash present on admission Rash is a macular patchy red rash without scale over the lower back, lateral thighs bilaterally, and lateral foot bilaterally. She reports that this moves and will sometimes wrap around to her abdomen or spread up and down the leg periodically. Pruritic. No scale. 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 If she is not working she takes a 25 mg Benadryl in the evening in addition to this. Does not seem to have helped her symptoms or rash from recurring. Was prescribed a methylprednisolone Dosepak, thinks that prior prednisone may have helped a little bit but noted it was very hard on her stomach and has not tried the methylprednisolone that was prescribed Has a family history of psoriatic arthritis no personal history of this. She has not had any extensor surface scaling. She has not been tested for rhe umatoid diseases before. CRP is elevated, ESR is normal. ESR/RF are pending Does have history of breast cancer. Has significant bilateral lower extremity soft tissue swelling with a negative DVT. CTabdomen/pelvis with runoff to the lower extremities is pending to evaluate for potential obstruction/malignancy however this is not anticipated be performed until 09/05 as she has already received IV contrast day of admission. She does not show any evidence of critical perfusion deficits in the lower extremity necessitating double contrast load 09/04. No evidence of recurrent or metastatic breast cancer/neoplastic allergic trigger CRP downtrending. AI/rheumatoid labs pending and will not be available for several days. Current allergy medication treatment plan: Hydroxyzine 25 mg morning and at bedtime. 10 mg noon as needed Cetirizine 10 mg daily. Nevaeh deferred while on cetirizine - Pepcid 20mg BID Montelukast 10 mg daily added 2/2 dermatographia Due to progression of rash and intense itching 09/05 has been started on methylprednisolone IV x 1 --> prednisone daily Benadryl 50 mg every 6 hours IV, methylprednisolone 125 mg IV as needed for any evidence of severe allergic reaction. Epinephrine IM 0.3 mg on-call if needed for evidence of anaphylaxis, fortunately she has not had any evidence of lip/tongue swelling or anaphylaxis thus far B/L Lower extremity swelling DVT negative No pitting edema 09/05, slight soft tissue swelling. No demarcated warmth/erythema, rash as described CTA/P with no evidence of intra-abdominal malignancy/recurrence or vascular obstruction PT/DP pulses are intact bilaterally. Cap refill is less than 2 seconds bilaterally. Sensation and strength is intact Grief reaction/depression/anxiety Patient reports she has had the passing of both her boyfriend and her mother recently has been under a great deal of stress. Noticed her leg swelling started after this No significant extremity or pulmonary edema, troponin is normal. Echo was with EF 60-65%, no regional wall motion abnormalities. 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 Mild cardiomegaly. No intrathoracic acute findings. CXR: Prominent vascular markings, mild congestive change. Right lateral chest wall indeterminate tube. DVT prophylaxis: Lovenox Disposition: MSO Diet: Regular CODE STATUS: Full code (2) Anxiety and depression: (3) History of breast cancer: (4) Chest pain: Admission and Anticipated Discharge Date Admission Date: September 04, 2024 Subjective She reports that she has had spreading of her rash from her back to her abdomen, patchy spots on the legs which are intensely itchy. Initially prefer to avoid steroids however is willing to try these given progressive symptoms. No fever chills or sweats. Afebrile overnight. No leukocytosis. Other than skin rash no new symptoms. No knee pain. No new leg swelling/joint swelling Physical Exam Physical Exam: General: A&Ox3. NAD. Cooperative. Tearful affect when discussing the passing of her boyfriend Skin: erythematous macules on the lower back bilaterally, left abdomen, proximal thighs, and ankles. No warmth/tenderness but they are intensely pruritic HEENT: Atraumatic, normocephalic. Vision and hearing grossly intact Pulm: Symmetrical chest rise. No increased work of breathing. No respiratory distress. Cardiac: Radial pulses intact and symmetrical. Abdominal: Nontender, nondistended, soft. BS present. Extremities: No pitting edema. No change in lower extremity soft tissue swelling. Results & Data Results & Data Vital Signs (Past 12 Hours) Vital Signs Temp Pulse Resp BP Pulse Ox O2 Del Method 09/05/24 08:06 36.6 C 70 18 97/64 L 95 Room Air PG Care Time/CCT Total # of Minutes Spent Total Time Spent with Patient: Total time spent is greater than 50% in coordination of care (as documented) at patient's floor/unit and/or counseling patient: Coding Level of Care Code 34427 SUB INP/OBS CARE 3/50MIN Diagnoses Idiopathic urticaria L50.1 Anxiety and depression F41.9; F32.A History of breast cancer Z85.3 Chest pain R07.9
[2024-09-05] MEDS: hydrOXYzine HCl 10 MG TAB PO ONE (11:32)
[2024-09-05] MEDS: methylPREDNISolone 80 MG in SYRINGE 0 ML IV STA (11:32)
[2024-09-05] MEDS ORDERED: hydrOXYzine HCl 10 MG TAB PO PRN (12:00)
[2024-09-05 19:45] VITALS: RESP 16; TEMP 98.1; O2SAT 94
[2024-09-05] MEDS: hydrOXYzine HCl 25 MG TAB PO SCH (21:00)
[2024-09-05] MEDS: IBUPROFEN 800 MG TAB PO PRN (22:01)
[2024-09-06 07:00] VITALS: BP 105/62; PULSE 83
[2024-09-06 07:31] LABS: Basophils # (auto) 0.02 K/uL (0.00-0.20); Basophils % (auto) 0.1 %; Hematocrit (blood only) 38.1 % (37.0-47.0); Hemoglobin 12.7 g/dl (12.0-16.0); Immature Granulocytes # (auto) 0.16 K/uL (0.01-0.20); Immature Granulocytes % (auto) 0.9 %; Lymphocytes # (auto) 2.57 K/uL (1.20-3.40); Mean Corpuscular Hemoglobin 29.3 pg (25.0-34.0); Mean Corpuscular Hgb Conc 33.3 g/dL (32.0-36.0); Mean Platelet Volume 8.2 fL (9.4-12.4); Monocytes # (auto) 1.04 K/uL (0.11-0.59); Monocytes % (auto) 6.1 %; Neutrophils # (auto) 13.33 K/uL (1.40-6.50); Neutrophils % (auto) 77.9 %; Platelet Count 339 K/uL (130-400); RDW Coefficient of Variation 12.8 % (11.5-14.5); RDW Standard Deviation 41.1 fL (36.4-46.3); Red Blood Count 4.33 M/uL (4.20-5.40); White Blood Count 17.12 K/ul (4.8-10.8)
[2024-09-06] MEDS: predniSONE 20 MG TAB PO SCH (07:39)
[2024-09-06 07:56] LABS: BUN Creatinine Ratio 22.4 (10-20); Calcium 9.8 mg/dl (8.6-10.3); Creatinine Clr Calc Pharmacy 83.2 ml/min; Potassium 4.2 mmol/L (3.5-5.1)
--- NOTE | 2024-09-06 08:45 | Discharge Summary ---
Discharge Summary Date of Service September 06, 2024 Principal Dx & Hospital Course #1 = Principal Diagnosis (1) Idiopathic urticaria: 53-year-old female with a past medical history of breast cancer s/p chemo and bilateral mastectomy, idiopathic urticaria, and asthma who presents with chest pain and itchy rash on her back/legs intermittently and with swelling of her knees and lower extremities without pitting edema. Drug admission she had a spreading macular intensely pruritic rash on her back, abdomen, and legs highly suggestive of urticaria. No specific triggers were identified. He has been under a large amount of stress. No mucosal swelling or wheezing was appreciated, no evidence of anaphylaxis during admission. Did have some leg swelling without pitting edema, there was no DVT and CTA showed no evidence of PE. CT of the chest and CTA/P due to history of past breast cancer did not show any evidence of current malignancy/metastasis/obstructive process Her symptoms resolved with adjustment of her antihistamine medications and addition of steroids. She had rapid resolution of her symptoms after steroids were added, and has follow-up scheduled with immunology/allergy on 09/07. To do as outpatient: Continue hydroxyzine 25 mg a.m./p.m., and 10 mg at noon as needed Continue cetirizine 10 mg daily Continue Pepcid 20 mg twice daily Continue montelukast 10 mg daily Complete prednisone which was tapered rather than 5-day burst due to severity of symptoms Follow-up as outpatient on SALLY/RF labs. Follow-up with PCP Follow-up with immunology/allergy Pruritic macular rash, dermatographia, history of both drug-induced and idiopathic urticaria Has not been using any new shampoos soaps or detergents. Has been monitoring these closely 2/2 discussion of PCP but has not identified any clear triggers Denies any recent medication changes. Has been prescribed phentermine and Topamax for weight however has not yet started these. Has been under a great deal of stress Prior hive reaction with doxycycline. Did have large hives/swelling on the back of her legs after taking this. This is a different quality than her itchy rash present on admission Rash is a macular patchy red rash without scale over the lower back, lateral thighs bilaterally, and lateral foot bilaterally. She reports that this moves and will sometimes wrap around to her abdomen or spread up and down the leg periodically. Pruritic. No scale. 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 If she is not working she takes a 25 mg Benadryl in the evening in addition to this. Does not seem to have helped her symptoms or rash from recurring. Has a family history of psoriatic arthritis no personal history of this. She has not had any extensor surface scaling. She has not been tested for rheumatoid diseases before. CRP is elevated, ESR is normal. SALLY/RF remain pending at discharge Does have history of breast cancer. Has significant bilateral lower extremity soft tissue swelling with a negative DVT. CTabdomen/pelvis with runoff to the lower extremities is pending to evaluate for potential obstruction/malignancy however this is not anticipated be performed until 09/05 as she has already received IV contrast day of admission. She does not show any evidence of critical perfusion deficits in the lower extremity necessitating double contrast load 09/04. No evidence of recurrent or metastatic breast cancer/neoplastic allergic tri gger CRP downtrending. AI/rheumatoid labs pending and will not be available for several days. Current allergy medication treatment plan: Hydroxyzine 25 mg morning and at bedtime. 10 mg noon as needed Cetirizine 10 mg daily. Nevaeh deferred while on cetirizine - Pepcid 20mg BID Montelukast 10 mg daily added 2/2 dermatographia Due to progression of rash and intense itching 09/05 was been started on methylprednisolone IV x 1 --> prednisone daily. She had rapid normalization of her symptoms following this B/L Lower extremity swelling DVT negative No pitting edema 09/05, slight soft tissue swelling. No demarcated warmth/erythema, rash as described CTA/P with no evidence of intra-abdominal malignancy/recurrence or vascular obstruction PT/DP pulses are intact bilaterally. Cap refill is less than 2 seconds bilaterally. Sensation and strength is intact Grief reaction/depression/anxiety Patient reports she has had the passing of both her boyfriend and her mother recently has been under a great deal of stress. Noticed her leg swelling started after this No significant extremity or pulmonary edema, troponin is normal. Echo was with EF 60-65%, no regional wall motion abnormalities. 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 Mild cardiomegaly. No intrathoracic acute findings. CXR: Prominent vascular markings, mild congestive change. Right lateral chest wall indeterminate tube. (2) Anxiety and depression: (3) History of breast cancer: (4) Chest pain: Admission HPI Per Admitting Provider Radhika is a 53-year-old female with a past medical history of cancer in remission, anxiety/depression, hyperlipidemia, metabolic syndrome, asthma, migraine, idiopathic urticaria who presented to the ER with chest pain, chest pressure, diffuse rash, and lower extremity edema. He also had swelling in her lower legs with difficulty ambulating due to pain per ER review. She was last seen by her PCP 07/21/2024 for her chest congestion and cough. Last outpatient visit was with bariatrics 09/02/2024 for metabolic syndrome. At that time she was restarted on phentermine 15 mg daily and Topamax 25 mg daily at bedtime, she reports she has not actually started this yet Itching/allergy symptoms started over marshall's day when she took a trip to [place] and got a sinus infection. Since then progressively worse. About a month ago, took 2-3 days of prednisone after reaction to doxycyline, but the prednisone made her sick and stopped. 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 On night she does not work she takes benadryl. No leukocytosis Hemoglobin normal BMP without acute electrolyte abnormalities. Creatinine 0.88 and at baseline. BSG 144. No transaminitis CRP elevated at 2.11. BNP is normal, high-sensitivity troponin is normal. Tryptase is pending. Lyme screen is pending. EKG: Normal sinus rhythm. QTc 467. No territorial ST/T wave changes. No signs of ischemia. Last echo 01/16/2023: EF 65 to 70%. Normal LV SF with no regional wall motion abnormalities. Longitudinal strain of the left ventricle normal. Diffuse intensely itchy patchy macular rash most prominent on her back and legs. Will wrap around her chest is intermittent. Is taking nondrowsy antihistamines, Benadryl, and hydroxyzine without improvement. Was on a course of prednisone previously but this gave her upset stomach. Also has knee pain and lower extremity swelling bilaterally. At bedside does display dermatographia. Multiple erythematous itchy macules are present at the lateral ankles, anterior and lateral thighs, and bilateral lower back. No scaling. No palpable nodules. She reports she also developed chest pain in a band across the front of her chest. She notes she has been under a great deal of stress with the passing of both her boyfriend and a family member recently and has a tearful affect on admission. Was on venlafaxine previously but this was stopped several months ago. Was restarted but due to concerns for allergy was discontinued and she has not taken this since. Does take Ativan 1 mg in the evenings. Notices her legs are swollen bilaterally the point where it was noticeable through her scrubs at the end of her shift. No prior history of the DVT/PE. Also has knee pain worsened on weightbearing and on palpation at the lateral aspect of both knees. No fevers chills or sweats. No shortness of breath at time of admission. Has been taking multiple antihistamines as noted above. Does have a history of breast cancer s/p bilateral mastectomy with no known recurrence/malignancy. No tobacco use No alcohol use Did have a hive allergy to doxycycline was prescribed for URI symptoms in the past Stomach upset due to steroids Full code Discharge Exam General: A&Ox3. NAD. Cooperative. Skin: Previously documented erythematous/pruritic macules completely resolved on morning assessment HEENT: Atraumatic, normocephalic. Vision and hearing grossly intact Pulm: Symmetrical chest rise. No increased work of breathing. No respiratory distress. Cardiac: Radial pulses intact and symmetrical. Abdominal: Nontender, nondistended, soft. BS present. Extremities: No pitting edema. No change in lower extremity soft tissue swelling. No knee pain Discharge Plan Discharge Items Patient Disposition: Home - Self-Care Reason For Visit: LEG SWELLING, CHEST PAIN, PRURITIC RASH Discharge Diagnosis: Idiopathic urticaria Condition on Discharge: Fair Activity: Resume your previous activity Non-emergency contact: Primary Care Provider and Specialist Call non-emergency contact if: you have any medication questions, your symptoms worsen and your pain is not controlled Follow-up/Referrals: Travon Prince CRNP [Primary Care Provider] - Diet: Regular Addtl Attending Provider Instructions: You were seen in the hospital for a itchy rash along your back, legs, and feet along with knee pain. Your allergy medications were adjusted, you had an increase in your rash and itching over your first night of admission. You were started on steroids with rapid clinical improvement. You have been continued on medications including steroids as below. You have had follow-up with immunology scheduled for 09/07/2024. Please continue to take the following allergy medications: Hydroxyzine 25 mg in the morning and at bedtime. You may also take 10 mg at noon as needed. This can cause drowsiness/sedation. Please take cetirizine 10 mg daily. Please take Pepcid 20 mg by mouth twice daily Please take montelukast 10 mg daily You have been prescribed a steroid taper. Please take prednisone 40 mg daily by mouth for 4 days, then decrease by 10 mg every other day. He will follow-up with immunology/allergy, they may adjust or change this to steroid taper. You had a mildly elevated CRP during admission. You had autoimmune/inflammatory labs sent out these will not be available for several days. Your symptoms were suspected to be due to idiopathic urticaria, and allergic pathology. There is a lower suspicion that autoimmune/rheumatoid conditions are contributing to this however you should have a follow-up on these labs once final results are available by your primary care provider. You are not suspected to have an infection during admission. Your Lyme testing was negative. You had a CT scan of your chest and pelvis with IV contrast during admission. He did not show any evidence of blood clots in your lung, and a Doppler of your lower extremities did not show evidence of blood clots in your legs. Your CT scans did not show any evidence of cancer. If you develop any new or worsening symptoms including fever, chills, sweats, chest pain, chest pressure, difficulty breathing, uncontrolled nausea/vomiting, rash, wheezing, passing out or nearly passing out, bleeding, black/bloody bowel movements, or other new or concerning symptoms please call your primary care physician, or call 911 for re-evaluation in the emergency department if you are very concerned. Pending Studies at Discharge: No Stand-Alone Forms: [facility], Sm[facility] Cessation Medications and DC Order Prescriptions: New cetirizine 10 mg Tablet 10 mg PO QAM Qty: 30 0RF prednisone 20 mg Tablet 40 mg PO DAILY Qty: 14 0RF Rx Instructions: Take 40mg daily for 4 days, then decrease by 10mg every other day famotidine 20 mg Tablet 20 mg PO BID Qty: 60 0RF hydroxyzine HCl 25 mg Tablet 25 mg PO BID Qty: 60 0RF hydroxyzine HCl 10 mg Tablet 10 mg PO 1200 PRN (Reason: itching/rash/allergy) Qty: 30 0RF montelukast 10 mg Tablet 10 mg PO HS Qty: 30 0RF Continued rizatriptan 10 mg tablet 10 mg PO DIRECTED PRN (Reason: Migraine Headache) Qty: 27 0RF Rx Instructions: Take 1 tab PO at onset of headache, repeat dose in 2 hrs PRN. Do not exceed 30mg/24hrs lorazepam 1 mg tablet 1 mg PO QPM PRN (Reason: Anxiety) Qty: 30 0RF Excedrin Migraine 250-250-65 mg tablet 1 tab PO Q6H PRN (Reason: Migraine Headache) albuterol sulfate 90 mcg/actuation HFA aerosol inhaler 1 puff INHALATION Q4H PRN (Reason: Shortness Of Breath Or Wheezing) Qty: 8.5 3RF ondansetron 8 mg tablet,disintegrating 8 mg PO TID PRN (Reason: nausea and vomiting) Qty: 30 1RF betamethasone valerate 0.1 % cream 1 applic topical BID PRN (Reason: skin irritation) Qty: 45 2RF phentermine 15 mg capsule 15 mg PO DAILY Qty: 30 1RF Rx Instructions: Last visit 09/02/24, next visit 6 weeks topiramate 25 mg tablet 25 mg PO HS Qty: 30 2RF ibuprofen 800 mg Tablet 800 mg PO Q8H PRN (Reason: Pain) methylprednisolone 4 mg tablets,dose pack 4 mg PO UD Rx Instructions: hasnt started yet Discontinued hydroxyzine HCl 10 mg tablet 10 mg PO TID PRN (Reason: anxiety) Qty: 30 0RF Discharge Orders: Discharge Order (Routine); Ordered 09/06/24 Ordered By: Kevin Jo/Other Patient Handouts: Preventing Deep Vein Thrombosis Admission Data Admit Date/Time: 09/05/24 17:35 Attending Provider: Kevin Nguyễn Admit Provider: Kevin Nguyễn Primary Care Provider: Travon Prince Other Providers: Kevin Nguyễn Other Interventions: Discharge Summary Assessment (RN) Last Done: 09/06/24 08:53 Hospital Stay Data Consultations 09/04/24 10:38 ED Decision to Admit Stat Diagnostic Imagining Performed 09/04/24 07:32 US venous doppler LE BI Stat 09/04/24 07:33 CT for pulmonary embolism PE [CT angio chest PE protocol] Stat 09/05/24 07:29 CT Abd and Pelvis [CT abd pelvis IV con only] Routine Pending Results Patient Have Any Pending Studies at Discharge: No Discharge Instructions Given to Patient (Per Discharging Provider) You were seen in the hospital for a itchy rash along your back, legs, and feet along with knee pain. Your allergy medications were adjusted, you had an increase in your rash and itching over your first night of admission. You were started on steroids with rapid clinical improvement. You have been continued on medications including steroids as below. You have had follow-up with immunology scheduled for 09/07/2024. Please continue to take the following allergy medications: Hydroxyzine 25 mg in the morning and at bedtime. You may also take 10 mg at noon as needed. This can cause drowsiness/sedation. Please take cetirizine 10 mg daily. Please take Pepcid 20 mg by mouth twice daily Please take montelukast 10 mg daily You have been prescribed a steroid taper. Please take prednisone 40 mg daily by mouth for 4 days, then decrease by 10 mg every other day. He will follow-up with immunology/allergy, they may adjust or change this to steroid taper. You had a mildly elevated CRP during admission. You had autoimmune/inflammatory labs sent out these will not be available for several days. Your symptoms were suspected to be due to idiopathic urticaria, and allergic pathology. There is a lower suspicion that autoimmune/rheumatoid conditions are contributing to this however you should have a follow-up on these labs once final results are available by your primary care provider. You are not suspected to have an infection during admission. Your Lyme testing was negative. You had a CT scan of your chest and pelvis with IV contrast during admission. He did not show any evidence of blood clots in your lung, and a Doppler of your lower extremities did not show evidence of blood clots in your legs. Your CT scans did not show any evidence of cancer. If you develop any new or worsening symptoms including fever, chills, sweats, chest pain, chest pressure, difficulty breathing, uncontrolled nausea/vomiting, rash, wheezing, passing out or nearly passing out, bleeding, black/bloody bowel movements, or other new or concerning symptoms please call your primary care physician, or call 911 for re-evaluation in the emergency department if you are very concerned. Total Time Total Time Spent Total Time Spent (In Minutes): Time spend day of discharge 35 minutes including direct patient care, documentation, review of labs and images, and coordination of care. Coding Level of Care Code 18782 INP/OBS DISCH >30 MIN Diagnoses Idiopathic urticaria L50.1 Anxiety and depression F41.9; F32.A History of breast cancer Z85.3 Chest pain R07.9
[2024-09-08 12:07] LABS: Anti Nuclear Antibody Screen NEGATIVE (NEGATIVE); Rheumatoid Factor <10 IU/mL (<14)
== END 2024-09-06 09:31 | disposition home or self-care (01) | DRG 607 ==
LOC: EDINP 07:14 → ED 07:14 → 3N 14:59